=== PATIENT | female | born 1945 | race Caucasian/White ===

== ENCOUNTER 2019-10-02 10:50 | Emergency (ER) | payer MEDICARE, BC, SELFPAY ==
[2019-10-02 10:51] VITALS: BP 175/52; PULSE 68; RESP 16; TEMP 36.8; O2SAT 99; BMI 31.4
--- NOTE | 2019-10-02 11:23 | CT_ITS ---
STUDY: CT BRAIN WITHOUT CONTRAST REASON FOR EXAM: Female, 73 years old. Status post fall on the back of the head, history of Parkinson''s with brain stimulator. RADIATION DOSAGE (If Supplied By Facility): CTDIvol = ( 44.99 ) mGy, DLP = ( 762.36 ) mGycm TECHNIQUE: Transaxial CT imaging of the brain was performed without administration of intravenous contrast material. Individualized dose optimization techniques were used for this CT. COMPARISON: No relevant priors. FINDINGS: Normal soft tissue structures. Normal calvarium. There is mild cerebral atrophy with widening of the extra-axial spaces and ventricular dilatation. Neurotransmitters wires are seen. Normal white matter tracts of the cerebral hemispheres. Normal basal ganglia and thalami. Normal brainstem. There is mild cerebellar atrophy. There is no intracranial hemorrhage. There are no findings of an acute ischemic infarction. There is opacification of the right maxillary sinus. CT/Brain/Head without Contrast IMPRESSION: No acute intracranial process as described above. Electronically Signed: Hugo Napier MD at 11:49 EDT Tel , Service support ,
--- NOTE | 2019-10-02 11:25 | ED.DCSUM_ITS ---
- ER Visit Summary Date of Service: 10/02/19 Chief Complaint: Fall History of Present Illness: The patient is a 73 F who presents after a fall that occurred today. Patient states she has Parkinson's disease and lost her balance. Patient states she fell backwards and hit the back of her head. states that he heard her hit her head and it was fairly loud. Patient denies any loss of consciousness. Patient denies any new paresthesias or weakness. Patient denies any visual changes. Patient denies any nausea or vomiting. Patient complains of a dull occipital headache. Physical Examination: Vital signs are stable. Patient is afebrile. Patient is in no acute distress. Cranial nerves II through XII are intact. Strength is 5/5 bilateral in upper and lower extremities. There are no sensory deficits noted. There is tenderness and a small hematoma over the left occipital area. There is no laceration. There is no bleeding noted. There is no bony crepitance or step-off. Pupils are equal, round, and reactive to light bilaterally. Extraocular muscles are intact. Oral mucosa is pink and moist. Neck is supple. Trachea is midline. There is no JVD. Heart was regular rate and rhythm. Lungs are clear and equal bilaterally. Abdomen is soft and nontender. Extremities are intact. There is no calf tenderness or edema. Test Results: CT scan of the brain was obtained. There is no acute intracranial abnormality. This was interpreted by the radiologist and reviewed by myself. Emergency Department Course and Treatment: Patient was given head injury instructions. Patient was instructed to follow-up with her primary care physician in 5 to 7 days. Patient was instructed return if worse in any way. Patient and her understood and were agreeable with the plan. All questions were answered. Disposition: Discharge home Impression: Closed head injury This note was generated with [employer] dictation software. It may contain incorrect words, spelling, and punctuation that were not noted in review of the chart prior to signing ED Disposition - Plan for ED Patient: Disposition: Home or Assisted Living Diagnosis: Closed head injury Instructions: ED Head Injury Adult Referrals: Bruce Vidal DO [Primary Care Provider] - 5-7 Days
== END 2019-10-02 12:10 | disposition home or self-care (01) ==
PROVIDERS: Emergency Provider Emergency Medicine; PCP Family Medicine
DX: S09.90XA Unspecified injury of head, initial encounter (principal); G20 Parkinson's disease; W19.XXXA Unspecified fall, initial encounter
CPT/HCPCS: 70450; 99282

== ENCOUNTER 2021-02-06 18:31 | Emergency (ER) | payer MEDICARE, BC, SELFPAY ==
[2021-02-06 18:32] VITALS: BP 208/104; PULSE 84; RESP 18; TEMP 36.4; O2SAT 100; BMI 26.6
--- NOTE | 2021-02-06 19:46 | EX.ED.DYSGE1 ---
HPI History of Present Illness Chief Complaint: Foreign Body Detail of Chief Complaint: Choking episode Informant: patient and spouse/S.O. Narrative Narrative: To the emergency department after having a choking episode this afternoon. Patient apparently was eating a Fransico casserole when she started to choke. Her performed the Heimlich maneuver about 3 times and then was able to dislodge the food. EMS was called and they assessed her in a brought her in to make sure she did not aspirate. states that patient has had history of difficulty swallowing at times and had a swallow eval about a year ago however no limitations were placed on the consistency of her food. Patient has no complaints at this time and denies difficulty swallowing or trouble breathing. Patient has history of Parkinson's as well as diabetes and hypothyroidism. Prior similar symptoms: No PFSH PFS Medical History (Updated 02/06/21 @ 20:[address] Kenzie Zhang, ) DM hyperosmolarity type II Hypothyroid Parkinson disease Parkinson's disease with use of electrical brain stimulation Home Medications carbidopa-levodopa 1 ea PO TID 10/02/19 [History Last Taken Unknown] carbidopa-levodopa 2 tab PO BIDAC 10/02/19 [History Last Taken Unknown] cholecalciferol (vitamin D3) 1,000 unit PO DAILY 10/02/19 [History Last Taken Unknown] ergocalciferol (vitamin D2) 1,250 mcg PO 10/02/19 [History Last Taken Unknown] furosemide 40 mg PO DAILY PRN 10/02/19 [History Last Taken Unknown] levothyroxine 112 mcg PO DAILY 10/02/19 [History Last Taken Unknown] losartan 50 mg PO DAILY 10/02/19 [History Last Taken Unknown] melatonin 5 mg PO QHS 10/02/19 [History Last Taken Unknown] metoprolol tartrate 50 mg PO BID 10/02/19 [History Last Taken Unknown] mirtazapine 30 mg PO QHS 10/02/19 [History Last Taken Unknown] potassium chloride 10 meq PO DAILY 10/02/19 [History Last Taken Unknown] potassium chloride 10 meq PO DAILY PRN 10/02/19 [History Last Taken Unknown] ropinirole 12 mg PO DAILY 10/02/19 [History Last Taken Unknown] sitagliptin-metformin 1 ea PO DAILY 10/02/19 [History Last Taken Unknown] Allergy/AdvReac Type Severity Reaction Status Date / Time No Known Allergies Allergy Verified 02/06/21 18:33 Social History Smoking Status: Never smoker ROS ROS ED Constitutional Constitutional ED: Reports systems reviewed and no addt'l complaints, except as documented; Denies body ache(s), change in weight or chills Eyes Eyes: Denies acute decrease in peripheral vision, change in vision, double vision or loss of vision ENT ENT ED: Reports none; Denies ear pain, lip swelling, loss taste/smell, neck pain, otalgia or sore throat Cardiovascular Cardiovascular: Reports none; Denies abdominal pain, chest pain with activity, leg edema, lightheadedness, palpitations, rapid heart rate or syncope Respiratory/Chest Respiratory/Chest: Reports none; Denies change in mental status, dry cough, dyspnea, hemoptysis, shortness of breath at rest or shortness of breath with exertion Gastrointestinal Gastrointestinal: Reports none and other Details: Choking episode ; Denies abdominal pain, change in stool character, diarrhea, hematemesis, hematochezia, melena, rectal bleeding or vomiting Genitourinary Genitourinary ED: Reports none; Denies abdominal discomfort, anuria, dysuria, genital pain or polyuria Musculoskeletal Musculoskeletal: Reports none; Denies arthralgias, back pain, difficulty walking, extremity pain, muscle weakness or myalgias Integumentary Reports none; Denies abscess or rash Neurologic Neurologic: Reports none; Denies abnormal gait, confusion, focal weakness, frequent falls, headache(s), loss of vision, numbness, paresthesias, radicular pain, vertigo or weakness Psychiatric Psychiatric: Reports systems reviewed and no addt'l complaints, except as documented and none; Denies behavioral changes, confusion, difficulty concentrating, hallucinations, suicidal ideation, tactile hallucinations or visual hallucinations Endocrine Endocrinology: Denies none, cold intolerance, excessive sweating, fatigue or heat intolerance Hematologic/Lymphatic Hematologic/Lymphatic: Reports none; Denies anemia, easy bleeding or easy bruising Allergic/Immunologic Allergic/Immunologic ED: Denies as per HPI, none, lip swelling, mouth swelling, throat swelling, tongue swelling or hives EXAM Physical Exam Const Vital Signs: 02/06/21 18:32 Temperature 97.5 F L Temperature Source Temporal Pulse Rate 84 Respiratory Rate 18 Blood Pressure 208/104 H Blood Pressure Mean 138 Pulse Ox 100 Oxygen Delivery Method Room Air Positive well nourished and well developed General Appearance ED: well developed and NAD HEENT Reports TM's clear and moist mucous membranes normocephalic and atraumatic; Negative for trauma or tenderness Tympanic Membrane ED: Yes TM's clear Eyes PERRL and EOMs intact bilaterally General Eye ED: Negative for pale conjunctiva or scleral icterus Neck no lymphadenopathy, supple and no JVD General: Negative for tenderness Chest Wall inspection of chest normal and palpation of chest normal Chest: Negative for tenderness Resp normal respiratory effort and clear to auscultation bilaterally Effort and Inspection: Negative for respiratory distress or pain with movement Auscultation: Negative for rhonchi, wheezes or diminished lung sounds Cardio regular rate, regular rhythm, S1 normal heart sound, S2 normal heart sound and no murmurs Peripheral Pulses: pulses 2+ throughout GI normal to inspection, nondistended, normoactive bowel sounds, soft to palpation, non-tender, non-distended and no masses Back/Spine no CVA tenderness and no thoracic nor lumbar tenderness Extremity normal to inspection General Extremety ED: Negative for edema General Extremity: Negative for edema Neuro oriented x3, CN's II-XII intact bilaterally, no sensory deficits noted and gait normal Sensorium / Orientation: awake, alert, oriented to person, oriented to place and oriented to time Motor Exam: strength 5/5 throughout and strength abnormal Psych mental status grossly normal Skin no rashes or lesions noted and no wounds MDM MDM MDM Narrative Medical decision making narrative: Patient was given water to drink and she was able to swallow without difficulty. I do not suspect esophageal impaction. This point patient has no complaints and has no respiratory distress. I feel she can be safely discharged home. I advised them to return if cough, fever, increasing shortness of breath, or condition should worsen anyway. Radiography Chest X-Ray - ED: 1 View Diagnostic Testing: Clinical Impression(s) from Imaging Studies Chest X-Ray 02/06/21 19:55 IMPRESSION: No acute radiographic abnormalities. Electronically Signed: Huy Clemens MD at 20:22 EST Tel , Service support , 1 view chest x-ray obtained interpreted by myself as no acute disease process. Radiology was in agreement. Discharge Plan Triage Chief Complaint: Foreign Body ED Provider: Kenzie Zhang Dx/Rx/DC Orders Clinical Impression: Choking episode Instructions: ED Choking Spell (Adult) Prescriptions: No Action losartan 50 MG tablet 50 mg PO DAILY RF: 0 furosemide 40 MG tablet 40 mg PO DAILY PRN (Reason: Swelling) RF: 0 potassium chloride 10 MEQ capsule, extended release 10 meq PO DAILY RF: 0 mirtazapine 30 MG tablet,disintegrating 30 mg PO QHS RF: 0 potassium chloride 10 MEQ tablet extended release 10 meq PO DAILY PRN (Reason: Swelling) RF: 0 metoprolol tartrate 50 MG tablet 50 mg PO BID RF: 0 ergocalciferol (vitamin D2) 1,250 MCG capsule 1,250 mcg PO RF: 0 carbidopa-levodopa 1 TABLET tablet 2 tab PO BIDAC RF: 0 levothyroxine 112 MCG tablet 112 mcg PO DAILY RF: 0 cholecalciferol (vitamin D3) 1,000 UNIT tablet 1,000 unit PO DAILY RF: 0 melatonin 5 MG tablet 5 mg PO QHS RF: 0 ropinirole 12 MG tablet extended release 24 hr 12 mg PO DAILY RF: 0 sitagliptin-metformin 1 EACH tablet, ER multiphase 24 hr 1 ea PO DAILY RF: 0 carbidopa-levodopa 1 EACH capsule, extended release 1 ea PO TID RF: 0 Primary Care Provider: Bruce Vidal Referrals: Bruce Vidal DO [Primary Care Provider] - 3-5 Days Disposition Disposition: Home, Self Care
--- NOTE | 2021-02-06 19:55 | RAD_ITS ---
INDICATION: choking spell EXAMINATION/TECHNIQUE: X-RAY - XR Chest 1 View COMPARISON: None. FINDINGS: The lungs are clear. Tortuous and calcified thoracic aorta. The heart is not enlarged. Bilateral cardiac device is. No pleural effusion or pneumothorax. Degenerative changes of the thoracic spine and shoulders. RAD/Chest 1 View (Portable) IMPRESSION: No acute radiographic abnormalities. Electronically Signed: Huy Clemens MD at 20:22 EST Tel , Service support ,
== END 2021-02-06 20:48 | disposition home or self-care (01) ==
PROVIDERS: Emergency Provider Emergency Medicine; PCP Family Medicine
DX: T17.928A Food in respiratory tract, part unspecified causing other injury, initial encounter (principal); E03.9 Hypothyroidism, unspecified; G20 Parkinson's disease; E11.00 Type 2 diabetes mellitus with hyperosmolarity without nonketotic hyperglycemic-hyperosmolar coma (NKHHC); Z79.84 Long term (current) use of oral hypoglycemic drugs; Z79.899 Other long term (current) drug therapy
CPT/HCPCS: 71045; 99284

== ENCOUNTER → 2021-03-28 12:45 | Outpatient (CLI) | payer MEDICARE, BC, SELFPAY ==
--- NOTE | 2021-03-28 15:58 | ST.MBS ---
Modified Barium Swallow - Patient Information Study Date: 03/28/21 Study Time: 13:00 Direct Billable Minutes: 120 Total Minutes procedure & reportin Diagnosis: Dysphagia, unspecified (R13.10), Parkinson?s Disease (G20) Referring Physician: Lupillo Wesley CNP Reason for Referral: Objectively assess swallow function, choking and aspiration risk, and determine recommendations for least restrictive diet texture and compensatory strategies to improve safety of swallow. Medical History: The patient is a 75 year old female with PMH including Parkinson?s disease with use of electrical brain stimulation, hypothyroid, and DM hyperosmolarity Type II. On 02/06/2022, the patient presented to [facility] ED after having a choking episode. Patient apparently was eating a Fransico casserole when she started to choke. Her performed the Heimlich maneuver about 3 times and then was able to dislodge the food. EMS was called, they assessed her and brought her to the ED for concerns for aspiration. The patient?s states that patient has had a history of difficulty swallowing. Per pt?s , she had a swallow eval about two years ago recommending no modified diet or speech therapy. She currently has to take meds with applesauce and avoids difficult to chew foods. Current Diet Ordered: Soft solids / Thin Mental Status: WNL Respiratory Status: Oxygenating on Room Air - Penetration-Aspiration Scale Penetration-Aspiration Scale: OBJECTIVE ASSESSMENT OF SWALLOW FUNCTION (QUANTITATIVE ? PER TRIAL): PENETRATION / ASPIRATION SCALE (LOMAS): 1 = does not enter airway 2 = enters airway/above vocal folds/ejected 3 = enters airway/above vocal folds/not ejected 4 = enters airway/contacts vocal folds/ejected 5 = enters airway/contacts vocal folds/not ejected 6 = enters airway/below vocal folds/ejected 7 = enters airway/below vocal folds/not ejected despite effort 8 = enters airway/below vocal folds/no effort VIDEOFLOROSCOPIC SCALE SCORE (LOMAS): Grade I = aspiration of material that has penetrated into the laryngeal vestibule, intact cough reflex Grade II = aspiration < 10 % of the bolus, intact cough reflex Grade III = aspiration of < 10 % of the bolus, reduced cough reflex or aspiration of > 10 % of the bolus, intact cough reflex Grade IV = aspiration of > 10 % of the bolus, reduced cough reflex - Penetration-Aspiration Scale Score Thin Liquid via teaspoon Result: 5= enters airways/contacts vocal folds/not ejected Thin Liquid via teaspoon Trial 2 Result: 5= enters airways/contacts vocal folds/not ejected Thin Liquid via small single sip from cup Result: 3= enters airways/above vocal folds/not ejected Thin Liquid via small single sip from cup Trial 2 Result: 8= enters airway/below vocal folds/no effort Pennock Thick Liquid via small single sip from cup Result: 2= enter airway/above vocal folds/ejected Honey Thick Liquid via small single sip from cup Result: 2= enter airway/above vocal folds/ejected Pudding Result: 7= enters airways/below vocal folds/not ejected despite effort - Post prandial aspiration of previous trials of thickened liquid residue. Weak cough/throat clear ineffective to expel aspirated contents. Cookie Result: 1= does not enter airway Thin Liquid via single sip from straw Result: 1= does not enter airway Thin Liquid via single sip from straw Trial 2 Result: 7= enters airways/below vocal folds/not ejected despite effort Thin Liquid via teaspoon Effortful swallow Result: 8= enters airway/below vocal folds/no effort Thin Liquid via teaspoon Effortful swallow Trial 2 Result: 7= enters airways/below vocal folds/not ejected despite effort Pennock Thick Liquid via teaspoon Effortful swallow Result: 7= enters airways/below vocal folds/not ejected despite effort Thin Liquid via teaspoon Chin tuck Result: 5= enters airways/contacts vocal folds/not ejected Thin Liquid via teaspoon Chin tuck Trial 2 Result: 5= enters airways/contacts vocal folds/not ejected Thin Liquid via teaspoon Cough and Reswallow Result: 5= enters airways/contacts vocal folds/not ejected - Cough and reswallow was somewhat effective but did not clear entirety of penetrated contrast from the laryngeal vestibule. - Oral Phase Labial Seal: Escape progressing to mid-chin Tongue Control During Bolus Hold: Posterior escape of greater than half of bolus Bolus Preparation/Mastication: Slow prolonged chewing/mashing with complete recollection Bolus Transport/Lingual Motion: Repetitive/disorganized tongue motion Oral Residue: Residue collection on oral structures - Pharyngeal Phase Initiation of Pharyngeal Swallow: Bolus head in pyriforms Soft Palate Elevation: Trace column of contrast/air between soft palate and pharyngeal wall Laryngeal Elevation: Partial superior movement thyroid cart/partial apprx aryt-epig petiole Anterior Hyoid Excursion: No anterior movement Epiglottic Movement: Partial inversion Laryngeal Vestibule Closure at Height of Swallow: Incomplete; narrow column of air/contrast in laryngeal vestibule Pharyngeal Stripping Wave: Present - complete Pharyngoesophageal Segment Opening: Minimal distension and minimal duration; marked obstruction of flow Tongue Base Retraction: Trace column of contrast between tongue base & post. pharyngeal wall Pharyngeal Residue: Collection of residue within or on pharyngeal structures - Esophageal Phase Esophageal Clearance: Esophageal retention - Minimal retention of contrast in upper and mid esophagus - Treatment Strategies Effects of treatment strategies attemped:: Chin tuck = somewhat effective Cough and reswallow = somewhat effective Decreased bolus size = effective - Diagnosis/Impression Diagnosis: moderate oropharyngeal phase dysphagia (R13.12) Impression: The oral phase is marked by prolonged mastication, decreased bolus control, and disorganized A-P bolus transport. She required prolonged mastication of 1/4 of a shortbread cookie with posterior loss of portion of bolus. She demonstrated frequent posterior loss of thin and nectar liquid boluses to the pyriform sinuses prior to swallow onset. She had repetitive, slowed tongue motion for A-P bolus transport. The pharyngeal phase is marked by decreased airway protection and moderate pharyngeal residues. The patient has decreased airway closure due to little to no anterior hyoid excursion and decreased laryngeal elevation during the swallow. She also has decreased UES opening likely due to poor hyolaryngeal elevation and excursion. She demonstrated silent aspiration of thin liquids via cup and thin liquids via tsp with effortful swallow. She had post prandial aspiration of honey thickened liquids via cup, nectar thick liquids tsp with effortful swallow, and thin liquids via straw. These trials aspirated after the swallow from residue in the pyriform sinuses. She did demonstrate cough reflex; however, cough was ineffective at expelling aspirated contrast. With use of cough & reswallow with tsp sips of thin, the patient was able to decrease some of the contrasted material in the laryngeal vestibule after the initial swallow with improved pharyngeal clearance on the second swallow. She was unable to fully eject contrast from the laryngeal vestibule with use of volitional or reflexive cough. - Recommendations Diet: Mechanical Soft Textures - Minced and Moist Textures (IDDSI Level 5), Thin Liquids Compensatory Strategies: Small Bites, Small Sips, Liquid by Teaspoon Only - Consider cough and reswallow with each sip, Sitting upright, Remain sitting upright for 30 minutes after PO intake, Assist with verbal cues to use recommended strategies Supervision: 1:1 Close Supervision Recommend Repeat Modified Barium Swallow: Yes - 4-8 weeks after implementation of oropharyngeal exercise program Need for Skilled Speech Therapy Services: Yes Comment: Will recommend the patient for intensive dysphagia therapy to address deficits in oropharyngeal swallow function. Would consider the patient for oropharyngeal strengthening to improve lingual coordination/strength, laryngeal elevation, hyoid excursion, and duration of UES opening. The patient would benefit from thorough education regarding diet recommendations and recommended compensatory strategies. Would also consider the patient for speech therapy referral to address dysarthria related to Parkinson's disease. Education Completed: 4. Family/caregivers understand evaluation & agree w/ goals & tx plan., 7. Pt requires further education on strategies & risks. - Status Active ST Patient: Active - Contact Information [facility] Speech Therapy:: Sofia Pichardo M.A. [facility] Speech-Language Pathologist [facility] [address] [place] [address] [email or web address] [phone] 03/28/21 16:21
== END ==
LOC: RAD 12:50
PROVIDERS: PCP Family Medicine
DX: R13.10 Dysphagia, unspecified (principal)
CPT/HCPCS: 74230; 92611

== ENCOUNTER → 2023-12-26 | Outpatient (CLI) | payer MEDICARE, BC, SELFPAY ==
--- NOTE | 2023-12-26 15:45 | RAD_ITS ---
EXAM: XR CHEST, 2 VIEWS CLINICAL INDICATION: COUGH, PARKINSONS, CONCERN FOR ASPIRATION TECHNIQUE: Frontal and lateral views of the chest. COMPARISON: 02/06/2021. FINDINGS: LUNGS AND PLEURAL SPACES: Unremarkable. No consolidation or edema. No pneumothorax. No effusion. HEART: Unremarkable. Cardiac silhouette not enlarged. MEDIASTINUM: Central airways and mediastinal contour are unremarkable. BONES/JOINTS: Unremarkable. No acute fracture. SOFT TISSUES: Unremarkable. TUBES, LINES AND DEVICES: Bilateral neural stimulators overlying the chest unchanged. RAD/Chest PA and Lateral IMPRESSION: No acute cardiopulmonary abnormality. Electronically Signed: Carlos Holley MD at 8:44 EST ,
== END | disposition home or self-care (01) ==
LOC: RAD 15:21
PROVIDERS: PCP Family Medicine; Referring Provider Family Medicine; Visit Provider Family Medicine
DX: R05.9 Cough, unspecified (principal); G20.A1 Parkinson's disease without dyskinesia, without mention of fluctuations
CPT/HCPCS: 71046

== ENCOUNTER 2024-04-12 12:12 | Inpatient (IN) | payer MEDICARE, BC, SELFPAY ==
[2024-04-12] VITALS (18 sets, daily range): BP systolic 118–174; BP diastolic 51–117; PULSE 69–117; RESP 12–35; TEMP 36.4–37.2; O2SAT 85–100; BMI 21.5; BMI 20.9
--- NOTE | 2024-04-12 12:34 | RAD_ITS ---
PROCEDURE: CHEST 1 VIEW (PORTABLE) REASON FOR EXAM: Weakness. Difficulty breathing. TECHNIQUE: Portable chest radiograph was obtained. COMPARISON: Comparison is made with prior study dated February 06, 2021. FINDINGS: There now is evidence of consolidation in the left lower lobe with small left pleural effusion. Mild cardiomegaly. Bilateral pacemaker devices with leads heading cephalad. Degenerative changes of the thoracic spine. RAD/Chest 1 View (Portable) IMPRESSION: Left lower lobe infiltrate with small left pleural effusion. Reading Location: [id number]
--- NOTE | 2024-04-12 12:36 | EKG12_ITS ---
Test Reason : SOB Blood Pressure : */* mmHG Vent. Rate : 76 BPM Atrial Rate : 76 BPM P-R Int : 142 ms QRS Dur : 132 ms QT Int : 420 ms P-R-T Axes : 55 -38 100 degrees QTcB Int : 472 ms Normal sinus rhythm Left axis deviation Left bundle branch block Abnormal ECG No previous ECGs available Confirmed by Carlos Hanks ([id number]), editorial project manager NANETTE AMEZQUITA ([id number]) on 04/13/2024 5:58:23 AM Referred By: NICKOLAS Confirmed By: Carlos Hanks
--- NOTE | 2024-04-12 12:40 | ED.VIS.DYS ---
HPI History of Present Illness Chief Complaint: Weakness Informant: patient and EMS Limited: other (nonverbal) Narrative Narrative: 78-year-old female presented by EMS because of shortness of breath, she states she has had a cough and some trouble breathing for about a week. She was hypoxic 85% on room air for EMS, very weak at home, to the point where she was unable to get up. has also been ill with respiratory symptoms. He came to the ED but was unable to provide any history due to personal illness. [facility] Medical History Parkinson's disease with use of electrical brain stimulation Hypothyroid DM hyperosmolarity type II Parkinson disease Home Medications ?Medication ?Instructions ?Recorded ?Last Taken ?Type carbidopa 25 mg-levodopa 100 mg 2 tab PO BIDAC 10/02/19 Unknown History tablet carbidopa ER 61.25 mg-levodopa 245 1 ea PO TID 10/02/19 Unknown History mg capsule,extended release cholecalciferol (vitamin D3) 25 1,000 unit PO DAILY 10/02/19 Unknown History mcg (1,000 unit) tablet ergocalciferol (vitamin D2) 1,250 1,250 mcg PO 10/02/19 Unknown History mcg (50,000 unit) capsule furosemide 40 mg tablet 40 mg PO DAILY PRN Swelling 10/02/19 Unknown History levothyroxine 112 mcg tablet 112 mcg PO DAILY 10/02/19 Unknown History losartan 50 mg tablet 50 mg PO DAILY 10/02/19 Unknown History melatonin 5 mg tablet 5 mg PO QHS 10/02/19 Unknown History metoprolol tartrate 50 mg tablet 50 mg PO BID 10/02/19 Unknown History mirtazapine 30 mg disintegrating 30 mg PO QHS 10/02/19 Unknown History tablet potassium chloride 10 mEq 10 meq PO DAILY 10/02/19 Unknown History capsule,extended release potassium chloride 10 mEq 10 meq PO DAILY PRN Swelling 10/02/19 Unknown History tablet,extended release ropinirole 12 mg tablet,extended 12 mg PO DAILY 10/02/19 Unknown History release 24 hr sitagliptin phos 100 mg-metformin 1 ea PO DAILY 10/02/19 Unknown History ER 1,000 mg tablet,extend rel 24h mp Allergy/AdvReac Type Severity Reaction Status Date / Time No Known Allergies Allergy Verified 02/06/21 18:33 Social History Smoking Status: Never smoker ROS ROS ED Review of Systems ROS Unobtainable: other Details: Nonverbal and extremely hard of hearing without hearing aids available Constitutional Constitutional ED: Reports fatigue and weakness; Denies fever(s) Cardiovascular Cardiovascular: Denies chest pain Respiratory/Chest Respiratory/Chest: Reports cough and dyspnea Gastrointestinal Gastrointestinal: Denies abdominal pain, diarrhea, nausea or vomiting EXAM Physical Exam Const Vital Signs: 04/12/24 12:13 04/12/24 12:17 04/12/24 14:15 Temperature 98.2 F Temperature Source Oral Pulse Rate 80 82 Respiratory Rate 22 H 24 H Respiratory Effort Short of Breath Respiratory Pattern Tachypnea Blood Pressure 143/60 H Blood Pressure Mean 87 Pulse Ox 94 Oxygen Delivery Method Nasal Cannula Nasal Cannula Oxygen Flow Rate (L/min) 2 04/12/24 14:33 04/12/24 14:33 04/12/24 14:35 Temperature 97.9 F Temperature Source Oral Pulse Rate 99 Respiratory Rate 26 H Respiratory Effort Short of Breath Respiratory Pattern Tachypnea Blood Pressure 148/117 H Blood Pressure Mean 127 Pulse Ox 99 Oxygen Delivery Method Nasal Cannula Nasal Cannula Oxygen Flow Rate (L/min) 4 4 Positive well nourished and well developed Constitutional Narrative: Appears weak no distress General Appearance ED: well developed and NAD HEENT Reports moist mucous membranes normocephalic and atraumatic Eyes PERRL and EOMs intact bilaterally Neck full ROM and supple Resp normal respiratory effort Resp Narrative: Rales left base Cardio regular rate and regular rhythm GI non-tender and non-distended GI Narrative: Epigastric G-tube site benign. Auscultation: normoactive bowel sounds Palpation: soft Back/Spine no CVA tenderness General Back: other FROM Extremity normal to inspection General Extremety ED: Negative for edema, pulses abnormal or tenderness General Extremity: Negative for edema or pulses abnormal Neuro CN's II-XII intact bilaterally and no sensory deficits noted Neuro Narrative: Able to follow commands. Nonverbal. Writes some answers very slowly on paper. Sensorium / Orientation: awake and alert Motor Exam: strength 5/5 throughout Skin no rashes or lesions noted and no wounds MDM MDM MDM Narrative Medical decision making narrative: 1 view chest x-ray shows what appears to be left lower lobe pneumonia with a small left pleural effusion. Her BNP is a little elevated, considering cardiopulmonary edema without infection, but although her white blood count is only 5.4, there is a left shift without bands and I think this could be infection until proven otherwise some covering her with antibiotics and given her hypoxemia admitting her to the hospital. Her influenza returned positive for influenza A, so also adding Tamiflu, that and the azithromycin will go in her G-tube, with IV Zosyn. She does not have respiratory failure or in need of mechanical ventilation and her lactate is normal, so I do not think she needs to be admitted to the ICU right now. History & Record Review Discussion w/independent historian: Patient and Family Lab Data Attestation: I reviewed the patient's lab results. Labs: Laboratory Results - last 24 hr 04/12/24 04/12/24 11:50 13:50 WBC 5.4 RBC 3.67 L Hgb 10.8 L Hct 32.8 L MCV 89.4 MCH 29.4 MCHC 32.9 RDW Std Deviation 43.0 RDW Coeff of Olive 13.0 Plt Count 160 MPV 11.5 Immature Gran % (Auto) 0.600 Neut % (Auto) 89.5 H Lymph % (Auto) 2.9 L [place] % (Auto) 6.4 Eos % (Auto) 0.2 Baso % (Auto) 0.4 Absolute Neuts (auto) 4.9 Absolute Lymphs (auto) 0.16 L Nucleated RBC % 0 Sodium 135 Potassium 4.2 Chloride Direct 101 Carbon Dioxide 23.9 Anion Gap 10 BUN 18 Creatinine 0.61 L Estim Creat Clear Calc 56.36 Est GFR (MDRD) Non-Af 92 BUN/Creatinine Ratio 30.0 H Glucose 102 H Lactic Acid 1.1 Calcium 8.7 Troponin T High Sens 14 NT pro BNP II 2262 H Radiography Diagnostic Testing: Clinical Impression(s) from Imaging Studies Chest X-Ray 04/12/24 12:34 IMPRESSION: Left lower lobe infiltrate with small left pleural effusion. Reading Location: [facility] Rhythm Strip Rhythm Strip: Sinus Rhythm Rate: 75 Ectopy: None EKG Initial EKG: Attestation: I personally reviewed and interpreted this EKG as follows: Interpretation: Sinus Rhythm, No Acute Injury Pattern and LBBB Prior EKG tracings: not available for review Prior: No Prior Management Discussion w/another healthcare provider: Hospitalist Discharge Plan Dx/Rx/DC Orders Clinical Impression: Hypoxemia, Pneumonia involving left lung, Parapneumonic effusion, Generalized weakness Disposition Disposition: Acute Care Hospital [facility]
[2024-04-12 13:22] LABS: Absolute Lymphocyte Count 0.16 X10^3/uL (0.83-4.51); Absolute Neutrophil Count 4.9 X10^3/uL (2.0-7.7); Basophil# 0.02 X10^3/uL; Basophil% 0.4 % (0-1); Eosinophil# 0.01 X10^3/uL; Eosinophils% 0.2 % (0-5); Hematocrit 32.8 % (37-47); Hemoglobin 10.8 g/dL (12.0-15.0); Lymphocyte # 0.16 X10^3/ul (0.83-4.51); Lymphocyte % 2.9 % (19-41); Mean Corp Hgb Conc 32.9 g/dL (32-36); Mean Corpuscular Hgb 29.4 pg (27.0-32.0); Mean Corpuscular Volume 89.4 fL (81-99); Mean Platelet Vol. 11.5 fl (6.2-12.0); Monocyte# 0.35 X10^3/uL; Monocyte% 6.4 % (0-10); NRBC Flagged by Analyzer 0 % (0-5); Neutrophil # 4.87 X10^3/uL (2.7-7.7); Neutrophil % 89.5 % (47-70); POSITIVE DIFFERENTIAL YES; Platelet Count 160 K/mm3 (150-450); Red Blood Count 3.67 M/mm3 (4.2-5.4); White Blood Count 5.4 K/mm3 (4.4-11.0)
[2024-04-12 13:34] LABS: Carbon Dioxide 23.9 mmol/L (22.0-29.0); Chloride 101 mmol/L (96-108); Potassium 4.2 mmol/L (3.3-5.1); Sodium Level 135 mmol/L (133-145)
[2024-04-12 13:35] LABS: Anion Gap 10 (5-15); BUN 18 mg/dL (4-19); Calcium 8.7 mg/dL (7.6-11.0); Creatinine, Serum 0.61 mg/dL (0.70-1.20); EST Glomerular Filtration Rate 92 (>60); Estimated Creatinine Clearance 56.36 ml/min (50-250); Glucose 102 mg/dL (70-99)
[2024-04-12 13:51] LABS: Pro- Brain NATRIURETIC PEPTIDE 2262 pg/mL (<=1800); Troponin T High Sensitivity 14 ng/L (<=14)
[2024-04-12] MEDS: 0.9% Normal Saline (500mL Bag) 500 ML 999 ML IV (14:09)
[2024-04-12] MEDS: Albuterol 2.5 MG/3 ML VIAL.NEB. INHALATION ×3 (14:12)
[2024-04-12 14:33] LABS: Lactic Acid 1.1 mmol/L (0.0-2.0)
[2024-04-12] MEDS: Piperacil/Tazobactam 3.375 GM in 0.9% Normal Saline (50mL MB+) 50 ML IV (15:28)
--- NOTE | 2024-04-12 15:28 | CHAPLAIN ---
Type of Pastoral Visit _x__ Initial Visit ___ Follow-up Visit ___ On-call Visit ___ General Patient Visit ___ Spiritual Assessment ___ Family Conference ___ Bereavement ___ Rapid Response ___ Code Blue ___ Other (describe below) Pastoral Care Referral From ___ Patient ___ Family _x__ Nurse ___ Physician ___ Instructional Paraprofessional ___ Industrial Design Engineer ___ Other (describe below) Sacrament/Intervention _x__ Active listening ___ Anointing ___ Baptist ___ Bereavement ___ Communion ___ Jacqui exploration ___ ___ Life review _x__ Prayer ___ Reconciliation ___ Sacrament of Sick _x__ Supportive presence ___ Wedding ___ Other (describe below) Pastoral Comments patient had come to the ED for treatment and then her spouse collapsed and became a code blue; this wound treatment rn arrived in the ED for the code blue and was asked to sit with this patient/spouse of the code blue; pt is nonverbal but writes her comments on a pad; gave presence, prayer, and assurances of care for both; was present when son-in-law and later the daughter of these patients came to the ED; gave supportive presence, calm words, assurance of care, offer of beverages to the family members; was then present for the spouse who had coded and offered support there
--- NOTE | 2024-04-12 15:31 | HP.PCM.HOS_ITS ---
HPI - General General Date of Admission: 04/12/24 Date of Service: 04/12/24 Chief Complaint: URI symptoms HPI Narrative MARYELLEN MCMILLAN, is a 78 F who presented [facility] ED on 04/12/2024 with worsening URI symptoms. Patient lives at home with who also came into the ED with her. Patient has history of advanced Parkinson's disease. He has poor hearing and is essentially nonverbal at baseline due to her Parkinson's but she is able to communicate by writing. Noted to family that she has had upper respiratory symptoms for the last week or so. She developed worsening cough and difficulty of breathing over the past day or so which prompted her to come in for further evaluation. In the ED she is found to be positive for influenza A. Was mildly hypertensive and had increased work of breathing on 4 L nasal cannula. Patient appeared dry on exam and was given IV fluids for this. Chest x-ray showed a left lower lobe infiltrate with small left pleural effusion and mild cardiomegaly. No prior history of heart failure noted. Given these findings, hospitalist was contacted for admission. Saw the patient at bedside in the ED, daughter and son-in-law are present. Patient was mildly fatigued appearing but otherwise sitting back fairly comfortably in bed and breathing up today on 4 L nasal cannula. She denied any pain or discomfort. No other acute concerns at this time. Unfortunately, patient was noted to have worsening respiratory function over the next hour or so and I reevaluated her at bedside. She had developed audible crackles bilaterally and had moderate increased work of breathing noted. Concern for heart failure with volume overload from IV fluids, gave patient a dose of IV Lasix and started her on BiPAP. Patient had improvement with these things and she was able to be transported over to the ICU on BiPAP in stable condition. [facility], [facility] Medical History Parkinson's disease with use of electrical brain stimulation Hypothyroid DM hyperosmolarity type II Parkinson disease Home Medications ?Medication ?Instructions ?Recorded ?Last Taken ?Type carbidopa 25 mg-levodopa 100 mg 2 tab PO .COMPLEX 09/11 04/01 Unknown History tablet cholecalciferol (vitamin D3) 25 1,000 unit PO DAILY Unknown History mcg (1,000 unit) tablet ergocalciferol (vitamin D2) 1,250 1,250 mcg PO 0 Unknown History mcg (50,000 unit) capsule furosemide 40 mg tablet 40 mg PO DAILY PRN Swelling 10/02/19 Unknown History levothyroxine 112 mcg tablet 112 mcg PO DAILY 10/02/19 Unknown History losartan 50 mg tablet 50 mg PO DAILY 10/02/19 Unkn own History melatonin 5 mg tablet 5 mg PO QHS 10/02/19 Unknown History metoprolol tartrate 50 mg tablet 50 mg PO BID 10/02/19 Unknown History mirtazapine 30 mg disintegrating 30 mg PO QHS 10/02/19 Unknown History tablet potassium chloride 10 mEq 10 meq PO DAILY 10/02/19 Unk nown History capsule,extended release potassium chloride 10 mEq 10 meq PO DAILY PRN Swelling 10/02/19 Unknown History tablet,extended release sitagliptin phos 100 mg-metformin 1 ea PO DAILY Unknown History ER 1,000 mg tablet,extend rel 24h mp entacapone 200 mg tablet 200 mg PO 4XD 04/12/24 Unkno wn History ropinirole 2 mg tablet 4 mg PO DAILY 04/12/24 Unkno wn History sitagliptin phosphate 100 mg 100 mg PO DAILY 04/12/24 Unknown History tablet (Januvia) Allergy/AdvReac Type Severity Reaction Status Date / Time No Known Allergies Allergy Verified 02/06/21 18:33 Social History Smoking Status: Never smoker ROS Constitutional Constitutional: Reports fatigue and weakness; Denies chills or fever(s) Eyes Eyes: Denies change in vision Cardiovascular Cardiovascular: Reports dyspnea on exertion; Denies chest pain Respiratory/Chest Respiratory/Chest: Reports cough, dyspnea, shortness of breath at rest and shortness of breath with exertion; Denies productive cough or wheezing Gastrointestinal Gastrointestinal: Denies abdominal pain Musculoskeletal Musculoskeletal: Denies arthralgias or myalgias Neurologic Neurologic: Denies dizziness or headache(s) Vital Signs Vital Signs Vital Signs: 04/12/24 12:13 04/12/24 12:17 04/12/24 14:15 Temperature 98.2 F Temperature Source Oral Pulse Rate 80 82 Respiratory Rate 22 H 24 H Respiratory Effort Short of Breath Respiratory Pattern Tachypnea Blood Pressure 143/60 H Blood Pressure Mean 87 Pulse Ox 94 Oxygen Delivery Method Nasal Cannula Nasal Cannula Oxygen Flow Rate (L/min) 2 04/12/24 14:33 04/12/24 14:33 04/12/24 14:35 Temperature 97.9 F Temperature Source Oral Pulse Rate 99 Respiratory Rate 26 H Respiratory Effort Short of Breath Respiratory Pattern Tachypnea Blood Pressure 148/117 H Blood Pressure Mean 127 Pulse Ox 99 Oxygen Delivery Method Nasal Cannula Nasal Cannula Oxygen Flow Rate (L/min) 4 4 Weight Weight: 62.5 kg Body Mass Index (BMI) 21.5 Physical Exam Const alert, no apparent distress and average body habitus Constitutional Narrative: Elderly female, advanced Parkinson's and nonverbal at baseline but able to answer questions by writing things down, making appropriate eye contact, mildly fatigued appearing but otherwise sitting up comfortably in bed. General Appearance: cooperative and comfortable HEENT normocephalic, head/scalp atraumatic, hearing grossly normal bilaterally, nasal mucous membranes and turbinates normal and moist oral mucous membranes Eyes PERRL, EOMs intact bilaterally and conjunctivae normal Neck full ROM Chest inspection of chest normal Resp normal respiratory effort and no use of accessory muscles Resp Narrative: Breathing comfortably on 4 L nasal cannula at rest. Moderately decreased breath sounds bilaterally with crackles noted in bilateral lung bases. No wheezing noted. Cardio regular rate, regular rhythm, no murmurs and peripheral pulses 2+ throughout GI normal to inspection, nondistended, normoactive bowel sounds, soft to palpation, non-tender and non-distended Back/Spine normal ROM Extremity normal to inspection, full ROM and no pedal edema Skin no rashes or lesions noted Neuro Neuro Narrative: Rigidity noted with movement. Psych mental status grossly normal Psych Narrative: Flat affect. Results Lab / Micro Data 04/12/24 11:50 04/12/24 11:50 Labs: Laboratory Results - last 24 hr 04/12/24 11:50: WBC 5.4, RBC 3.67 L, Hgb 10.8 L, Hct 32.8 L, MCV 89.4, MCH 29.4, MCHC 32.9, RDW Std Deviation 43.0, RDW Coeff of Olive 13.0, Plt Count 160, MPV 11.5, Immature Gran % (Auto) 0.600, Neut % (Auto) 89.5 H, Lymph % (Auto) 2.9 L, [place] % (Auto) 6.4, Eos % (Auto) 0.2, Baso % (Auto) 0.4, Absolute Neuts (auto) 4.9, Absolute Lymphs (auto) 0.16 L, Nucleated RBC % 0, Sodium 135, Potassium 4.2, Chloride Direct 101, Carbon Dioxide 23.9, Anion Gap 10, BUN 18, Creatinine 0.61 L, Estim Creat Clear Calc 56.36, Est GFR (MDRD) Non-Af 92, BUN/Creatinine Ratio 30.0 H, Glucose 102 H, Calcium 8.7, Troponin T High Sens 14, NT pro BNP II 2262 H 04/12/24 13:50: Lactic Acid 1.1 Micro: Microbiology 04/12/24 13:50 Mucosa - Nose SARS-CoV-2, Influenza & RSV (PCR) - Final Influenzae A Rhythm Strip Rhythm Strip: Sinus Rhythm Rate: 75 Ectopy: None Imaging Radiology Impression Chest X-Ray 04/12/24 12:34 IMPRESSION: Left lower lobe infiltrate with small left pleural effusion. Reading Location: [id number] Assessment & Plan Assessment/Plan (1) Acute hypoxic respiratory failure: (2) Generalized weakness: (3) Influenza A: PLAN: Plan Patient is a 78-year-old female who presented [facility] ED on 04/12/2024 with worsening URI symptoms. 1. Acute hypoxic respiratory failure secondary to influenza A infection with concern for CHF ? Admit under inpatient status to ICU. Ship/Rec/Doc Control consulted. Initial chest x- ray with mild volume overload, concern for left lower lobe pneumonia and mild cardiomegaly. BNP elevated at 2200. Influenza A positive. Seems most consistent with influenza A infection and new onset CHF. Will treat with Tamiflu and IV Lasix for now. Echo ordered. Wean supplemental oxygen as able. Appreciate deputy prosecuting attorney recommendations. 2. Advanced Parkinson's disease ? Stable. Continue home Parkinson's medications. Medical conditions: ? Hypertension: Will hold home Lopressor and losartan for now. ? Hypothyroidism: Continue home Synthroid. DVT prophylaxis: Lovenox CODE STATUS: DNR CCA, okay to intubate Expected disposition: TBD Total clinical time spent by myself addressing the patient's medical issues, reviewing all the data, and collaborating with patient's care team: 75 minutes. Charges/Coding Visit Charges Inpatient E&M: 78905 Init Hosp L3
[2024-04-12] MEDS: Furosemide 40 MG/4 ML Vial IV ×2 (16:24→18:56)
[2024-04-12] MEDS: Azithromycin 500 MG in 0.9% Normal Saline (250mL Bag) 250 ML 255 MG IV (16:44)
[2024-04-12] MEDS: Oseltamivir Phosphate 75 MG Capsule GT (16:45)
--- NOTE | 2024-04-12 16:52 | CASEMGMT ---
Care Management Face to Face with patient for initial transition planning/care coordination assessment in the ED. This global technical writer introduced self and role at [facility] to patient and patient's son in law, Heraclio, who was bedside. Patient alert and oriented, though nonverbal at baseline and wrote out answers. Some answers had been received from patient's daughter, Cathy, who was present at patient's 's bedside. Patient willing to participate in assessment and is able to answer all questions appropriately. Care providers, pharmacy, and demographics verified. Admitting Diagnosis: generalized weakness, influenza A Other diagnosis history: Parkinson's, Hypothyroidism PCP: Bruce Vidal Specialists: Sj, neurologist. Forest, coiled coil inspector. Preferred Pharmacy: [facility] ([email or web address]) Insurance: Medicare A B (primary). Mobile Complete (secondary). Prescription Benefit: yes Living Will/HPOA: (daughter Cathy is bringing in paperwork; it is believed that , Óscar, is listed first followed by children, Cathy and Freddie, though order is unknown; daughter Cathy did express interest in redoing paperwork should patient agree). LNOK: , Óscar. Daughter, Cathy. Son, Freddie. Living Arrangements: with in a split level home; 4 steps to enter main level (with kitchen and living room); 7 or 8 steps up to bedroom and bathroom; independent at baseline. Transportation: patient's drives DME: pacemaker, blood pressure cuff HHC: none SNF/Rehab: [facility] (though son-in-law was not sure which one) Community Resources: none Patient goals: Patient states desire to wait to decide what discharge plans are for patient depending on how patient's does. Disposition Plan: admission to acute; RN CM/SW to follow for discharge planning needs that may arise. Marisol Tyler, WEB EDITOR, [employer]
--- NOTE | 2024-04-12 18:28 | ECHOD_ITS ---
Reason For Study Reason For Study: CHF Procedure This was a 2D Doppler, Color Flow transthoracic echocardiogram. Exam performed portable in ICU/CCU. Left Ventricle Normal LV size. Mild concentric left ventricular hypertrophy. The left ventricular ejection fraction is 65 %. Stage 1 diastolic dysfunction. Right Ventricle Normal right ventricle. Atria The left and right atria are normal. Mitral Valve Mild mitral annular calcification. Trivial mitral valve insufficiency. Tricuspid Valve Trivial tricuspid valve insufficiency. Right ventricular systolic pressure estimated to be 55 mmHg. Aortic Valve Trisinus/trileaflet aortic valve. Pulmonic Valve The pulmonic valve is not well visualized. Great Vessels Normal sized aortic root. Pericardium/Pleural No pericardial effusion. MMode/2D Measurements & Calculations LVIDd: 4.2 cm IVSd: 1.2 cm Ao root diam: 2.9 cm LVIDs: 2.6 cm LVPWd: 1.2 cm RVDd: 3.0 cm FS: 39.2 % LAV(MOD-bp): 22.8 ml LVAd ap4: 21.5 cm2 SV(MOD-sp4): 32.1 ml LAV(MOD-bp) Indexed: 13.4 ml/m2 LVLd ap4: 7.2 cm SI(MOD-sp4): 18.9 ml/m2 LAV(MOD-sp2): 24.7 ml EDV(MOD-sp4): 52.6 ml LAV(MOD-sp4): 20.8 ml EDV(sp4-el): 54.6 ml LVAs ap4: 11.9 cm2 LVLs ap4: 5.9 cm ESV(MOD-sp4): 20.5 ml ESV(sp4-el): 20.3 ml EF(MOD-sp4): 61.1 % EF(sp4-el): 62.8 % SV(sp4-el): 34.3 ml LA A4 area: 11.5 cm2 LA dimension(2D): 2.8 cm RA A4 area: 9.4 cm2 TAPSE: 2.0 cm Time Measurements MV dec time: 0.18 sec Doppler Measurements & Calculations MV E max gavin: 80.5 cm/sec Lat Peak E' Gavin: 7.6 cm/sec Med Peak E' Gavin: 7.4 cm/sec MV A max gavin: 108.2 cm/sec E/E' lat: 10.6 E/E' med: 10.9 MV E/A: 0.74 Ao V2 max: 176.0 cm/sec LV V1 max: 131.9 cm/sec PA V2 max: 136.0 cm/sec Ao max P.4 mmHg LV V1 max P.0 mmHg TR max gavin: 317.0 cm/sec TR max P.2 mmHg ECHO/Echo Complete Interpretation Summary Mild concentric left ventricular hypertrophy. The left ventricular ejection fraction is 65 %. Stage 1 diastolic dysfunction. Mild mitral annular calcification. Right ventricular systolic pressure estimated to be 55 mmHg. Ordering Physician: Juno Benitez Referring Physician: YOMAIRA SHARP Performed By: Niki Cordero RDCS
[2024-04-12] MEDS: Mirtazapine 30 MG Tablet GT (22:17)
[2024-04-12] MEDS: Carbidopa/Levodopa 25/100 Tablet GT (22:17)
[2024-04-12] MEDS: Pramipexole Di-HCl 0.5 MG Tablet 1.5 MG PO (22:17)
[2024-04-13] VITALS (15 sets, daily range): BP systolic 107–162; BP diastolic 51–113; PULSE 63–86; RESP 12–29; TEMP 36.8–37.2; O2SAT 90–98; BMI 20.8
[2024-04-13] MEDS: Furosemide 40 MG/4 ML Vial IV ×2 (05:42→18:43)
[2024-04-13] MEDS: Carbidopa/Levodopa 25/100 Tablet GT ×5 (05:42→21:21)
[2024-04-13] MEDS: Levothyroxine 112 MCG Tablet GT (05:42)
[2024-04-13] MEDS: 0.9% Saline Lock 10 ML Syringe IV ×2 (05:43→18:43)
[2024-04-13 06:24] LABS: Hematocrit 30.6 % (37-47); Hemoglobin 10.3 g/dL (12.0-15.0); Mean Corp Hgb Conc 33.7 g/dL (32-36); Mean Corpuscular Hgb 29.5 pg (27.0-32.0); Mean Corpuscular Volume 87.7 fL (81-99); Mean Platelet Vol. 10.9 fl (6.2-12.0); Platelet Count 163 K/mm3 (150-450); RBC Distribution Width CV 13.2 % (11.6-14.6); Red Blood Count 3.49 M/mm3 (4.2-5.4); White Blood Count 4.9 K/mm3 (4.4-11.0)
[2024-04-13 06:34] LABS: Anion Gap 11 (5-15); BUN 19 mg/dL (4-19); BUN/Creat Ratio 32.8 RATIO (10-20); Calcium,Total 8.3 mg/dL (7.6-11.0); Carbon Dioxide 25.3 mmol/L (21.0-32.0); Chloride 102 mmol/L (98-108); Creatinine, Serum 0.59 mg/dL (0.70-1.20); EST Glomerular Filtration Rate 92 (>60); Estimated Creatinine Clearance 54.26 ml/min (50-250); Glucose 103 mg/dL (70-99); Potassium 3.4 mmol/L (3.3-5.1); Sodium Level 138 mmol/L (133-145)
--- NOTE | 2024-04-13 07:38 | EX.PCM.CONCC ---
Assessment & Plan Assessment/Plan (1) Acute hypoxic respiratory failure: (2) Influenza A: PLAN: Plan RECOMMENDATIONS: 1. Supplemental oxygen, if needed, to maintain saturations at or above 90%. 2. Continue Tamiflu to complete treatment course. 3. Given the lobar consolidation noted on chest imaging, will initiate course of antibiotics as well. 4. Check MRSA screen. 5. Encourage incentive spirometer use and mobilize patient as tolerated. 6. The patient currently has no ICU needs. Will sign off at this time. IMPRESSIONS: 1. Acute hypoxemic respiratory failure Most likely multifactorial in etiology with clinical concern for congestive heart failure, influenza A and possible secondary bacterial pneumonia contributing. The patient was initially maintained with BiPAP therapy and did ultimately receive IV diuretics, with subsequent improvement in her respiratory status. She is currently stable on 2 L/min via nasal cannula. Recommend continuing Tamiflu to complete treatment course. Given the lobar consolidation noted on chest x-ray, we will initiate an antibiotic treatment course as well. The patient is otherwise clinically stable for transfer out of the intensive care unit. 2. History of Parkinson's disease/hypertension/hypothyroidism Complicates care, management, recovery and prognosis. Continue home medications as indicated. This note was generated with Fusion-io dictation software. It may contain incorrect words, spelling, and punctuation that were not noted in checking the note before signing. HPI Consult Data Date of Consult: 04/13/24 HPI Narrative Reason for Consultation: Influenza HPI Narrative: The patient is a 78-year-old female, with a history as outlined below, who presented to the emergency department on April 12 via EMS with progressive dyspnea and cough of approximately 1 weeks duration. 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 She communicates primarily via writing. Her medical history is significant for hypothyroidism, hypertension and diabetes mellitus. On presentation to the emergency department, the patient was documented to be afebrile and hemodynamically stable. Laboratory evaluation revealed a normal white blood cell count. Chemistry profile was unremarkable. Lactate was within normal limits. Troponin was normal. BNP was elevated at 2262. Chest x-ray was significant for a left lower lobe consolidation. PCR for influenza A was positive. The patient subsequently received supplemental IV fluids and was started on Tamiflu. This morning, the patient appears comfortable on 2 L/min via nasal cannula. [facility] Medical History Parkinson's disease with use of electrical brain stimulation Hypothyroid DM hyperosmolarity type II Parkinson disease Home Medications ?Medication ?Instructions ?Recorded ?Last Taken ?Type carbidopa 25 mg-levodopa 100 mg 2 tab PO .COMPLEX 10/02/19 Unknown History tablet cholecalciferol (vitamin D3) 25 1,000 unit PO DAILY 10/02/19 Unknown History mcg (1,000 unit) tablet ergocalciferol (vitamin D2) 1,250 1,250 mcg PO 10/02/19 Unknown History mcg (50,000 unit) capsule furosemide 40 mg tablet 40 mg PO DAILY PRN Swelling 10/02/19 Unknown History levothyroxine 112 mcg tablet 112 mcg PO DAILY 10/02/19 Unknown History losartan 50 mg tablet 50 mg PO DAILY 10/02/19 Unknown History melatonin 5 mg tablet 5 mg PO QHS 10/02/19 Unknown History metoprolol tartrate 50 mg tablet 50 mg PO BID 10/02/19 Unknown History mirtazapine 30 mg disintegrating 30 mg PO QHS 10/02/19 Unknown History tablet potassium chloride 10 mEq 10 meq PO DAILY 10/02/19 Unknown History capsule,extended release potassium chloride 10 mEq 10 meq PO DAILY PRN Swelling 10/02/19 Unknown History tablet,extended release sitagliptin phos 100 mg-metformin 1 ea PO DAILY 10/02/19 Unknown History ER 1,000 mg tablet,extend rel 24h mp entacapone 200 mg tablet 200 mg PO 4XD 04/12/24 Unknown History ropinirole 2 mg tablet 4 mg PO DAILY 04/12/24 Unknown History sitagliptin phosphate 100 mg 100 mg PO DAILY 04/12/24 Unknown History tablet (Januvia) Allergy/AdvReac Type Severity Reaction Status Date / Time No Known Allergies Allergy Verified 02/06/21 18:33 Social History Smoking Status: Never smoker ROS ROS Narrative 10 systems were reviewed with pertinent positives as noted in the HPI above. Physical Exam Const alert and no apparent distress General Appearance: cooperative HEENT normocephalic and head/scalp atraumatic Eyes PERRL, EOMs intact bilaterally and conjunctivae normal Neck supple General: trachea midline Chest inspection of chest normal Resp normal respiratory effort Auscultation: diminished lung sounds; Negative for rales, rhonchi or wheezes Cardio regular rate and regular rhythm GI normal to inspection, nondistended, normoactive bowel sounds Inspection: GI tube present Extremity no clubbing, cyanosis or edema Skin no rashes or lesions noted Neuro CN's II-XII intact bilaterally, moves all extremities and no focal motor deficits Neuro Narrative: Nonverbal at baseline. Psych Mood & Affect: flat affect Lab / Micro Data 04/13/24 05:49 04/13/24 05:49 Labs: Laboratory Results - last 24 hr 04/12/24 11:50: WBC 5.4, RBC 3.67 L, Hgb 10.8 L, Hct 32.8 L, MCV 89.4, MCH 29.4, MCHC 32.9, RDW Std Deviation 43.0, RDW Coeff of Olive 13.0, Plt Count 160, MPV 11.5, Immature Gran % (Auto) 0.600, Neut % (Auto) 89.5 H, Lymph % (Auto) 2.9 L, [place] % (Auto) 6.4, Eos % (Auto) 0.2, Baso % (Auto) 0.4, Absolute Neuts (auto) 4.9, Absolute Lymphs (auto) 0.16 L, Nucleated RBC % 0, Sodium 135, Potassium 4.2, Chloride Direct 101, Carbon Dioxide 23.9, Anion Gap 10, BUN 18, Creatinine 0.61 L, Estim Creat Clear Calc 56.36, Est GFR (MDRD) Non-Af 92, BUN/Creatinine Ratio 30.0 H, Glucose 102 H, Calcium 8.7, Troponin T High Sens 14, NT pro BNP II 2262 H 04/12/24 13:50: Lactic Acid 1.1 04/13/24 05:49: WBC 4.9, RBC 3.49 L, Hgb 10.3 L, Hct 30.6 L, MCV 87.7, MCH 29.5, MCHC 33.7, RDW Std Deviation 42.0, RDW Coeff of Olive 13.2, Plt Count 163, MPV 10.9, Sodium 138, Potassium 3.4, Chloride 102, Carbon Dioxide 25.3, Anion Gap 11, BUN 19, Creatinine 0.59 L, Estim Creat Clear Calc 54.26, Est GFR (MDRD) Non-Af 92, BUN/Creatinine Ratio 32.8 H, Glucose 103 H, Calcium 8.3 Micro: Microbiology 04/12/24 13:50 Mucosa - Nose SARS-CoV-2, Influenza & RSV (PCR) - Final Influenzae A Rhythm Strip Rhythm Strip: Sinus Rhythm Rate: 75 Ectopy: None Imaging Radiology Impression Chest X-Ray 04/12/24 12:34 IMPRESSION: Left lower lobe infiltrate with small left pleural effusion. Reading Location: [id number] Charges/Coding Visit Charges Inpatient E&M: 28269 Init Hosp L3
--- NOTE | 2024-04-13 10:18 | CASEMGMT ---
Social Work SW participated in ICU rounds this morning, pt's daughter Cathy and Son Freddie present. SW spoke w/family outside of room after rounds, son in law Patrick now present. Cathy had already stated in ICU rounds that pt would need to go somewhere for rehab. SW created in [facility] a list of intermediate facilities in network w/pt's insurance, in pt's preferred geographic area, and complete w/quality and resource use data. Daughter Cathy states that pt will want to go to [facility], as she goes for outpt therapy there already. SW explained to family how Medicare covers SNF. They do think pt's will need to go as well, though he will not want to go. SW explained will start the referral process today for pt, will continue to follow. SW also offered support to family as both of their parents are hospitalized. Initial referral made in [facility]. Son's name and number: Keaton Newman: [phone]. MARITZA Murphy
[2024-04-13] MEDS: Piperacil/Tazobactam 3.375 GM in 0.9% Normal Saline (50mL MB+) 50 ML IV ×2 (10:22→21:23)
[2024-04-13] MEDS: Cholecalciferol (VIT D3) 25 MCG TABLET (1,000 UNITS) GT (10:24)
[2024-04-13] MEDS: Enoxaparin 40 MG/0.4 ML Syringe SC (10:25)
[2024-04-13] MEDS: Oseltamivir Phosphate 75 MG Capsule GT ×2 (10:25→21:23)
--- NOTE | 2024-04-13 11:35 | CASEMGMT ---
[facility]. Sharonda Espitia DC Planning Asst.
--- NOTE | 2024-04-13 14:51 | CASEMGMT ---
Social Work Pt was accepted at [facility], SW called daughter Cathy to let her know. MARITZA Murphy
[2024-04-13] MEDS: Jevity 1.5. 1,000 ML Bottle 240 ML GT ×3 (14:53→21:21)
--- NOTE | 2024-04-13 14:56 | CHAPLAIN ---
Type of Pastoral Visit ___ Initial Visit _x__ Follow-up Visit ___ On-call Visit ___ General Patient Visit ___ Spiritual Assessment ___ Family Conference ___ Bereavement ___ Rapid Response ___ Code Blue ___ Other (describe below) Pastoral Care Referral From _x__ Patient _x__ Family ___ Nurse ___ Physician ___ Supervisor Publications Production ___ Presser Hand ___ Other (describe below) Sacrament/Intervention _x__ Active listening ___ Anointing ___ Alevism ___ Bereavement ___ Communion ___ Jacqui exploration ___ ___ Life review _x__ Prayer ___ Reconciliation ___ Sacrament of Sick _x__ Supportive presence ___ Wedding ___ Other (describe below) Pastoral Comments follow up to this patient that was seen in ED yesterday and whose was also admitted to ICU; supportive presence of listening and prayer given to encourage and support her; pt writes on a tablet to give a report on her status and her
--- NOTE | 2024-04-13 15:08 | PN_ITS ---
Subjective Subjective Patient seen and examined. She had no active complaints. She denied any chest pain, palpitations, dizziness, nausea or vomiting. She is coughing and it is productive of yellowish tinged sputum. Review of systems is otherwise negative. On 2L of oxygen by nasal canula Objective Data Objective Data Vital Signs: Vital Signs Temp Pulse Resp BP Pulse Ox O2 Del Method O2 Flow Rate 99.0 F 85 18 157/69 H 91 Nasal Cannula 2 04/13/24 14:00 04/13/24 14:00 04/13/24 14:00 04/13/24 14:00 04/13/24 14:00 04/13/24 14:00 04/13/24 14:24 FiO2 40 04/13/24 07:07 Oxygen Flow Rate (L/min) 2 Oxygen Delivery Method Nasal Cannula Weight: 132 lb 15.02 oz Body Mass Index (BMI) 20.8 Intake & Output: Intake and Output for Last 24 Hours 04/11/24 04/12/24 04/13/24 23:59 23:59 23:59 Intake Total 805 / 805 100 / 100 Output Total 750 / 750 650 / 650 Balance 55 / 55 -550 / -550 Lab / Micro Data 04/13/24 05:49 04/13/24 05:49 Labs: Laboratory Results - last 24 hr 04/13/24 05:49: WBC 4.9, RBC 3.49 L, Hgb 10.3 L, Hct 30.6 L, MCV 87.7, MCH 29.5, MCHC 33.7, RDW Std Deviation 42.0, RDW Coeff of Olive 13.2, Plt Count 163, MPV 10.9, Sodium 138, Potassium 3.4, Chloride 102, Carbon Dioxide 25.3, Anion Gap 11, BUN 19, Creatinine 0.59 L, Estim Creat Clear Calc 54.26, Est GFR (MDRD) Non- Af 92, BUN/Creatinine Ratio 32.8 H, Glucose 103 H, Calcium 8.3 Micro: Microbiology 04/12/24 13:50 Mucosa - Nose SARS-CoV-2, Influenza & RSV (PCR) - Final Influenzae A Radiography Diagnostic Testing: Radiology Impression Echocardiogram 04/12/24 18:28 Interpretation Summary Mild concentric left ventricular hypertrophy. The left ventricular ejection fraction is 65 %. Stage 1 diastolic dysfunction. Mild mitral annular calcification. Right ventricular systolic pressure estimated to be 55 mmHg. Ordering Physician: Juno Benitez Referring Physician: YOMAIRA SHARP Performed By: Niki Cordero RDCS Rhythm Strip Rhythm Strip: Sinus Rhythm Rate: 75 Ectopy: None Physical Exam Const alert, oriented x3 and no apparent distress Constitutional Narrative: flat affect, has expressive aphasia due to parkinson's disease. Able to mouth her words General Appearance: cooperative HEENT normocephalic, head/scalp atraumatic, moist oral mucous membranes and oropharynx normal Eyes PERRL and EOMs intact bilaterally Neck no lymphadenopathy and supple Lymph Lymphatic: no lymphadenopathy noted and no lymphedema noted Resp Resp Narrative: mildly diminished breath sounds bibasally, no wheezes or crackles. On 2L of oxygen by nasal canula Cardio regular rate, regular rhythm, S1 normal heart sound, S2 normal heart sound and no murmurs GI normal to inspection, nondistended, normoactive bowel sounds, soft to palpation, non-tender and non-distended Extremity normal capillary refill, no clubbing, cyanosis or edema and no calf tenderness Skin General Skin Exam: no breakdown Neuro CN's II-XII intact bilaterally and no sensory deficits noted Neuro Narrative: expressive aphasia due to Parkinson's disease, though she is able to mouth her words Coordination / Balance: [id number] test normal Motor Exam: general weakness Psych thought process normal and cooperative Assessment & Plan Assessment/Plan (1) Acute hypoxic respiratory failure: (2) Influenza A: (3) Generalized weakness: PLAN: Plan #Acute hypoxic respiratory failure due to influenza A infection with concern for heart failure * admitted to the ICU initially due to patient requiring BIPAP. * Chest x-ray showed left lower lobe pneumonia and mild cardiomegaly and BNP was also elevated. * Also tested positive for influenza. Now off BiPAP and on 2 L of oxygen. * Transfer out of ICU. Titrate oxygen to maintain saturation above 90%. Breathing treatments bronchodilators. On Tamiflu and IV Lasix. 2D echo also done. * Patient started on antibiotics on account of evidence of pneumonia. Chest x- ray. Sputum culture ordered and MRSA screen also ordered. #Advanced Parkinson's disease * Stable. Does have some expressive aphasia on account of the Parkinson's disease. On entacapone #Hypothyroidism: Present losartan held on admission #Hypothyroidism: On Synthroid #Type 2 diabetes mellitus: On metformin and sitagliptin. DVT prophylaxis: Lovenox Charges/Coding Visit Charges Inpatient E&M: 60589 Subs Hosp L2
[2024-04-13] MEDS: MELATONIN 10 MG TABLET 5 MG GT (21:22)
[2024-04-13] MEDS: Pramipexole Di-HCl 0.5 MG Tablet 1.5 MG PO (21:22)
[2024-04-13] MEDS: Mirtazapine 30 MG Tablet GT (21:23)
[2024-04-14 03:10] VITALS: BP 106/54; PULSE 66; RESP 18; TEMP 36.6; O2SAT 97
[2024-04-14] MEDS: Jevity 1.5. 1,000 ML Bottle 240 ML GT ×5 (06:05→22:07)
[2024-04-14] MEDS: Carbidopa/Levodopa 25/100 Tablet GT ×5 (06:06→22:06)
[2024-04-14] MEDS: Levothyroxine 112 MCG Tablet GT (06:06)
[2024-04-14] MEDS: Piperacil/Tazobactam 3.375 GM in 0.9% Normal Saline (50mL MB+) 50 ML IV ×3 (06:07→22:07)
[2024-04-14 08:10] VITALS: O2SAT 92
[2024-04-14 08:28] LABS: Absolute Lymphocyte Count 0.62 X10^3/uL (0.83-4.51); Absolute Neutrophil Count 2.4 X10^3/uL (2.0-7.7); Hematocrit 33.3 % (37-47); Lymphocyte # 0.62 X10^3/ul (0.83-4.51); Lymphocyte % 19.6 % (19-41); Mean Corpuscular Hgb 29.5 pg (27.0-32.0); Mean Corpuscular Volume 89.3 fL (81-99); Mean Platelet Vol. 10.8 fl (6.2-12.0); Monocyte# 0.16 X10^3/uL; NRBC Flagged by Analyzer 0 % (0-5); Neutrophil # 2.36 X10^3/uL (2.7-7.7); Neutrophil % 74.5 % (47-70); Platelet Count 177 K/mm3 (150-450); RBC Distribution Width CV 12.9 % (11.6-14.6); RBC Distribution Width SD 42.2 fl (35.1-43.9); Red Blood Count 3.73 M/mm3 (4.2-5.4); White Blood Count 3.2 K/mm3 (4.4-11.0)
[2024-04-14 09:10] LABS: Anion Gap 11 (5-15); BUN 24 mg/dL (4-19); BUN/Creat Ratio 34.7 RATIO (10-20); Calcium,Total 8.3 mg/dL (7.6-11.0); Carbon Dioxide 27.7 mmol/L (21.0-32.0); Chloride 103 mmol/L (98-108); Creatinine, Serum 0.69 mg/dL (0.70-1.20); EST Glomerular Filtration Rate 89 (>60); Estimated Creatinine Clearance 54.26 ml/min (50-250); Glucose 175 mg/dL (70-99); Potassium 3.1 mmol/L (3.3-5.1); Sodium Level 142 mmol/L (133-145)
[2024-04-14 10:03] VITALS: BP 122/58; PULSE 75; RESP 16; TEMP 36.7; O2SAT 96
[2024-04-14] MEDS: Enoxaparin 40 MG/0.4 ML Syringe SC (10:12)
[2024-04-14] MEDS: Cholecalciferol (VIT D3) 25 MCG TABLET (1,000 UNITS) GT (10:13)
[2024-04-14] MEDS: Oseltamivir Phosphate 75 MG Capsule GT ×2 (10:13→22:07)
--- NOTE | 2024-04-14 13:33 | PN_ITS ---
Subjective Subjective Patient seen and examined. She had no active complaints. As stated in previous notes, she is largely mute with expressive aphasia from severe Parkinson's disease but is able to vocalize some words. She denied being in pain and says she felt good today. She does have a cough. She is on 2 L of oxygen. Review of systems otherwise negative. Objective Data Objective Data Vital Signs: Vital Signs Temp Pulse Resp BP Pulse Ox O2 Del Method O2 Flow Rate 98.1 F 75 16 122/58 H 96 Nasal Cannula 2 04/14/24 10:03 04/14/24 10:03 04/14/24 10:03 04/14/24 10:03 04/14/24 10:03 04/14/24 10:03 04/14/24 10:03 FiO2 40 04/13/24 07:07 Oxygen Flow Rate (L/min) 2 Oxygen Delivery Method Nasal Cannula Weight: 132 lb 15.02 oz Body Mass Index (BMI) 20.8 Intake & Output: Intake and Output for Last 24 Hours 04/12/24 04/13/24 04/14/24 23:59 23:59 23:59 Intake Total 805 / 805 330 / 330 100 / 100 Output Total 750 / 750 650 / 1500 1500 / 1500 Balance 55 / 55 -320 / -1170 -1400 / -1400 Lab / Micro Data 04/14/24 07:58 04/14/24 07:58 Labs: Laboratory Results - last 24 hr 04/14/24 07:58: WBC 3.2 L, RBC 3.73 L, Hgb 11.0 L, Hct 33.3 L, MCV 89.3, MCH 29.5, MCHC 33.0, RDW Std Deviation 42.2, RDW Coeff of Olive 12.9, Plt Count 177, MPV 10.8, Immature Gran % (Auto) 0.900, Neut % (Auto) 74.5 H, Lymph % (Auto) 19.6, [place] % (Auto) 5.0, Eos % (Auto) 0.0, Baso % (Auto) 0.0, Absolute Neuts (auto) 2.4, Absolute Lymphs (auto) 0.62 L, Nucleated RBC % 0, Sodium 142, P otassium 3.1 L, Chloride 103, Carbon Dioxide 27.7, Anion Gap 11, BUN 24 H, C reatinine 0.69 L, Estim Creat Clear Calc 54.26, Est GFR (MDRD) Non-Af 89, B UN/Creatinine Ratio 34.7 H, Glucose 175 H, Calcium 8.3 Micro: Microbiology 04/12/24 13:50 Mucosa - Nose SARS-CoV-2, Influenza & RSV (PCR) - Final Influenzae A Rhythm Strip Rhythm Strip: Sinus Rhythm Rate: 75 Ectopy: None Physical Exam Const alert and oriented x3 Constitutional Narrative: flat affect, has expressive aphasia due to parkinson's disease. Able to mouth her words General Appearance: cooperative and comfortable HEENT normocephalic, head/scalp atraumatic, hearing grossly normal bilaterally, nasal mucous membranes and turbinates normal, moist oral mucous membranes and oropharynx normal Eyes PERRL, EOMs intact bilaterally and conjunctivae normal Neck full ROM, no lymphadenopathy and supple Lymph Lymphatic: no lymphadenopathy noted and no lymphedema noted Chest inspection of chest normal Resp normal respiratory effort and no use of accessory muscles Resp Narrative: mildly diminished breath sounds bibasally, no wheezes or crackles. Still On 2L of oxygen by nasal canula Cardio regular rate, regular rhythm, S1 normal heart sound, S2 normal heart sound, no murmurs and peripheral pulses 2+ throughout GI normal to inspection, nondistended, normoactive bowel sounds, soft to palpation, non-tender and non-distended Back/Spine normal ROM Extremity normal to inspection, full ROM, normal capillary refill, no clubbing, cyanosis or edema, no calf tenderness and no pedal edema Skin no rashes or lesions noted General Skin Exam: no breakdown Neuro no sensory deficits noted Neuro Narrative: expressive aphasia due to Parkinson's disease, though she is able to mouth her words Coordination / Balance: [id number] test normal Motor Exam: general weakness Psych mental status grossly normal, thought process normal and cooperative Appearance: appropriate Assessment & Plan Assessment/Plan (1) Acute hypoxic respiratory failure: (2) Influenza A: (3) Generalized weakness: PLAN: Plan #Acute hypoxic respiratory failure due to influenza A infection with concern for heart failure * admitted to the ICU initially due to patient requiring BIPAP. * Chest x-ray showed left lower lobe pneumonia and mild cardiomegaly and BNP was also elevated. * Also tested positive for influenza. Now off BiPAP and on 2 L of oxygen. * Now transferred out of ICU. Titrate oxygen to maintain saturation above 90%. Breathing treatments bronchodilators. On Tamiflu and IV Lasix. * Patient started on antibiotics on account of evidence of pneumonia. Chest x- ray. Sputum culture ordered and MRSA screen also ordered. * 2D echo showed EF of 65% with stage I diastolic dysfunction and mild concentric left ventricular hypertrophy with right ventricular systolic pressure estimated to be 55 mmHg. * Placed on Lasix p.o. 40 mg daily. #Pulmonary artery hypertension: * As per 2D echo which showed RVSP of 55 mmHg. * Likely due to underlying stage I diastolic dysfunction. * On Lasix. Will monitor. * #Advanced Parkinson's disease * Stable. Does have some expressive aphasia on account of the Parkinson's disease. On entacapone #Hypothyroidism: Present losartan held on admission #Hypothyroidism: On Synthroid #Type 2 diabetes mellitus: On metformin and sitagliptin. DVT prophylaxis: Lovenox Charges/Coding Visit Charges Inpatient E&M: 78447 Subs Hosp L2
[2024-04-14] MEDS: Furosemide 40 MG Tablet PO (15:01)
[2024-04-14] MEDS: 0.9% Saline Lock 10 ML Syringe IV (15:02)
[2024-04-14 15:03] VITALS: BP 141/58; PULSE 72; RESP 16; TEMP 36.6; O2SAT 99
[2024-04-14 17:32] VITALS: BP 111/52; PULSE 80; RESP 18; TEMP 36.9; O2SAT 93
[2024-04-14] MEDS: Pramipexole Di-HCl 0.5 MG Tablet 1.5 MG PO (22:06)
[2024-04-14] MEDS: Mirtazapine 30 MG Tablet GT (22:07)
[2024-04-14] MEDS: MELATONIN 10 MG TABLET 5 MG GT (22:07)
[2024-04-14 23:30] VITALS: BP 141/60; PULSE 83; RESP 18; TEMP 36.7; O2SAT 97
[2024-04-15 03:30] VITALS: BP 137/65; PULSE 60; RESP 16; TEMP 36.6; O2SAT 100
[2024-04-15] MEDS: 0.9% Saline Lock 10 ML Syringe IV ×3 (05:26→21:01)
[2024-04-15] MEDS: Piperacil/Tazobactam 3.375 GM in 0.9% Normal Saline (50mL MB+) 50 ML IV ×3 (05:29→21:02)
[2024-04-15 06:00] VITALS: BMI 20.4
[2024-04-15] MEDS: Jevity 1.5. 1,000 ML Bottle 240 ML GT ×4 (06:18→21:23)
[2024-04-15] MEDS: Carbidopa/Levodopa 25/100 Tablet GT ×4 (06:19→21:23)
[2024-04-15] MEDS: Levothyroxine 112 MCG Tablet GT (06:19)
[2024-04-15 07:00] VITALS: O2SAT 95
[2024-04-15 09:14] LABS: Anion Gap 12 (5-15); BUN 19 mg/dL (4-19); Calcium,Total 8.5 mg/dL (7.6-11.0); Carbon Dioxide 28.4 mmol/L (21.0-32.0); Chloride 104 mmol/L (98-108); Creatinine, Serum 0.66 mg/dL (0.70-1.20); EST Glomerular Filtration Rate 90 (>60); Estimated Creatinine Clearance 53.98 ml/min (50-250); Glucose 108 mg/dL (70-99); Magnesium 2.1 mg/dL (1.5-2.2); Potassium 3.5 mmol/L (3.3-5.1); Sodium Level 144 mmol/L (133-145)
--- NOTE | 2024-04-15 09:26 | CASEMGMT ---
Discharge Planning Updates sent to [facility]. Sharonda Espitia DC Planning Asst.
[2024-04-15 09:29] LABS: Phosphorus 3.4 mg/dL (2.7-4.5)
[2024-04-15 09:30] VITALS: BP 116/60; PULSE 73; RESP 16; TEMP 36.7; O2SAT 96
[2024-04-15] MEDS: Oseltamivir Phosphate 75 MG Capsule GT ×2 (09:49→21:22)
[2024-04-15] MEDS: Furosemide 40 MG Tablet PO (09:49)
[2024-04-15] MEDS: Cholecalciferol (VIT D3) 25 MCG TABLET (1,000 UNITS) GT (09:50)
[2024-04-15 11:57] VITALS: BP 116/61; PULSE 72; RESP 16; TEMP 36.4; O2SAT 93
--- NOTE | 2024-04-15 12:07 | SUR.PREOP ---
Patient arrived in preop and upon check in patient received jevity TF 240ml bolus per peg this morning at 0950. anesthesia and dr. garcía aware. pending decision when to proceed
[2024-04-15 14:40] VITALS: BP 123/57; PULSE 80; RESP 18; TEMP 36.7; O2SAT 93
--- NOTE | 2024-04-15 14:52 | PN.HOSP_ITS ---
Reason for Visit Reason for Visit: Diagnoses Influenza due to other identified influenza virus with other respiratory manifestations (04/12/24) Acute respiratory failure with hypoxia (04/12/24) Weakness (04/12/24) Subjective Subjective Saw patient at bedside this morning. Patient was sitting up comfortably in bedside chair and in no acute distress. She is nonverbal at baseline due to advanced Parkinson disease. She shook her head no when asked if she had any pain or discomfort this morning. No other new concerns today. Objective Data Objective Data Vital Signs: Vital Signs Temp Pulse Resp BP Pulse Ox O2 Del Method O2 Flow Rate 98.1 F 80 18 123/57 H 93 Room Air 2 04/15/24 14:40 04/15/24 14:40 04/15/24 14:40 04/15/24 14:40 04/15/24 14:40 04/15/24 14:40 04/15/24 11:57 FiO2 40 04/13/24 07:07 Oxygen Flow Rate (L/min) 2 Oxygen Delivery Method Room Air Weight: 59 kg Body Mass Index (BMI) 20.4 Intake & Output: Intake and Output for Last 24 Hours 04/13/24 04/14/24 04/15/24 23:59 23:59 23:59 Intake Total 330 / 330 570 / 570 880 / 880 Output Total 650 / 1500 1800 / 1800 Balance -320 / -1170 -1230 / -1230 880 / 880 Lab / Micro Data 04/14/24 07:58 04/15/24 08:35 Labs: Laboratory Results - last 24 hr 04/15/24 08:35: Sodium 144, Potassium 3.5, Chloride 104, Carbon Dioxide 28.4, Anion Gap 12, BUN 19, Creatinine 0.66 L, Estim Creat Clear Calc 53.98, Est GFR (MDRD) Non-Af 90, BUN/Creatinine Ratio 29.0 H, Glucose 108 H, Calcium 8.5, Phosphorus 3.4, Magnesium 2.1 Micro: Microbiology 04/12/24 13:50 Mucosa - Nose SARS-CoV-2, Influenza & RSV (PCR) - Final Influenzae A Rhythm Strip Rhythm Strip: Sinus Rhythm Rate: 75 Ectopy: None Physical Exam Const alert, no apparent distress and average body habitus Constitutional Narrative: Elderly female, advanced Parkinson's and nonverbal at baseline but able to answer questions by writing things down, making appropriate eye contact, mildly fatigued appearing but improved from admission, otherwise sitting up comfortably in bedside chair and in no acute distress. General Appearance: cooperative and comfortable HEENT normocephalic, head/scalp atraumatic, hearing grossly normal bilaterally, nasal mucous membranes and turbinates normal and moist oral mucous membranes Eyes PERRL, EOMs intact bilaterally and conjunctivae normal Neck full ROM Chest inspection of chest normal Resp normal respiratory effort and no use of accessory muscles Resp Narrative: Breathing comfortably on room air at rest. Mildly decreased breath sounds in bilateral lung bases but no crackles or wheezing noted, improved from admission. Cardio regular rate, regular rhythm, no murmurs and peripheral pulses 2+ throughout GI normal to inspection, nondistended, normoactive bowel sounds, soft to palpation, non-tender and non-distended GI Narrative: PEG tube in place. Back/Spine normal ROM Extremity normal to inspection, full ROM and no pedal edema Skin no rashes or lesions noted Neuro Neuro Narrative: Rigidity noted with movement. Stable. Psych mental status grossly normal Psych Narrative: Flat affect. Assessment & Plan Assessment/Plan (1) Acute hypoxic respiratory failure: (2) Generalized weakness: (3) Influenza A: PLAN: Plan Patient is a 78-year-old female who presented [facility] ED on 04/12/2024 with worsening URI symptoms. 1. Acute hypoxic respiratory failure secondary to influenza A infection and suspected concurrent bacterial pneumonia, improved; moderate pulmonary hypertension ? Pulmonology followed. Positive for influenza A on admit. Chest x-ray showed mild volume overload, concern for left lower lobe pneumonia and mild cardiomegaly. BNP elevated at 2200. Echo showed EF 65%, stage I diastolic dysfunction, moderate pulmonary hypertension with RVSP 55 mmHg. Required BiPAP on admit but was weaned back to 4 L nasal cannula by evening of admission. Continue Tamiflu and IV Zosyn for now, plan to complete 5-day course of Tamiflu and 7-day course of antibiotics total. Weaned off supplemental oxygen by 04/15. Stable for discharge from a respiratory standpoint. 2. Acute on chronic debility in setting of advanced Parkinson's disease ? PT/OT/case management following. Remains weaker than baseline due to flu infection. Planning for SNF on discharge. Continue home Parkinson's medications. 3. Dysphagia with PEG tube in place ? Patient n.p.o. baseline given severe dysphagia in setting of Parkinson's disease, is on tube feeds via PEG tube. Plan was for PEG tube exchange on 04/15 but it appears there was an issue with this so planning for exchange on 04/16 and patient will then be medically ready for discharge. Medical conditions: ? Hypertension: Continue home Lopressor and losartan. ? Hypothyroidism: Continue home Synthroid. DVT prophylaxis: Lovenox CODE STATUS: DNR CCA, okay to intubate Expected disposition: SNF, 1 to 2 days Total clinical time spent by myself addressing the patient's medical issues, reviewing all the data, and collaborating with patient's care team: 35 minutes. Charges/Coding Visit Charges Inpatient E&M: 49620 Subs Hosp L2
--- NOTE | 2024-04-15 18:41 | EX.PCM.CON.G ---
HPI Consult Data Date of Consult: 04/15/24 HPI Narrative Reason for Consultation: Malfunctioning PEG HPI Narrative: MARYELLEN MCMILLAN, is a 78-year-old female presented by EMS because of shortness of breath, she states she has had a cough and some trouble breathing for about a week. She was hypoxic 85% on room air for EMS, very weak at home, to the point where she was unable to get up. has also been ill with respiratory symptoms. She came to the ED but was unable to provide any history due to personal illness. She was diagnosed with acute influenza A. She has been having some problems with her PEG tube so I was consulted for PEG tube exchange. FORMERLY [facility] Medical History Parkinson's disease with use of electrical brain stimulation Hypothyroid DM hyperosmolarity type II Parkinson disease Home Medications ?Medication ?Instructions ?Recorded ?Last Taken ?Type carbidopa 25 mg-levodopa 100 mg 2 tab PO .COMPLEX 10/02/19 Unknown History tablet cholecalciferol (vitamin D3) 25 1,000 unit PO DAILY 10/02/19 Unknown History mcg (1,000 unit) tablet ergocalciferol (vitamin D2) 1,250 1,250 mcg PO 10/02/19 Unknown History mcg (50,000 unit) capsule furosemide 40 mg tablet 40 mg PO DAILY PRN Swelling 10/02/19 Unknown History levothyroxine 112 mcg tablet 112 mcg PO DAILY 10/02/19 Unknown History losartan 50 mg tablet 50 mg PO DAILY 10/02/19 Unknown History melatonin 5 mg tablet 5 mg PO QHS 10/02/19 Unknown History metoprolol tartrate 50 mg tablet 50 mg PO BID 10/02/19 Unknown History mirtazapine 30 mg disintegrating 30 mg PO QHS 10/02/19 Unknown History tablet potassium chloride 10 mEq 10 meq PO DAILY 10/02/19 Unknown History capsule,extended release potassium chloride 10 mEq 10 meq PO DAILY PRN Swelling 10/02/19 Unknown History tablet,extended release sitagliptin phos 100 mg-metformin 1 ea PO DAILY 10/02/19 Unknown History ER 1,000 mg tablet,extend rel 24h mp entacapone 200 mg tablet 200 mg PO 4XD 04/12/24 Unknown History ropinirole 2 mg tablet 4 mg PO DAILY 04/12/24 Unknown History sitagliptin phosphate 100 mg 100 mg PO DAILY 04/12/24 Unknown History tablet (Januvia) Allergy/AdvReac Type Severity Reaction Status Date / Time No Known Allergies Allergy Verified 02/06/21 18:33 Social History Smoking Status: Never smoker ROS Constitutional Constitutional: Reports fatigue and weakness; Denies chills or fever(s) Eyes Eyes: Denies change in vision Cardiovascular Cardiovascular: Reports dyspnea on exertion; Denies chest pain Respiratory/Chest Respiratory/Chest: Reports cough, dyspnea, shortness of breath at rest and shortness of breath with exertion; Denies productive cough or wheezing Gastrointestinal Gastrointestinal: Denies abdominal pain Musculoskeletal Musculoskeletal: Denies arthralgias or myalgias Neurologic Neurologic: Denies dizziness or headache(s) Physical Exam Const alert and oriented x3 Constitutional Narrative: flat affect, has expressive aphasia due to parkinson's disease. Able to mouth her words General Appearance: cooperative and comfortable HEENT normocephalic, head/scalp atraumatic, hearing grossly normal bilaterally, nasal mucous membranes and turbinates normal, moist oral mucous membranes and oropharynx normal Eyes PERRL, EOMs intact bilaterally and conjunctivae normal Neck full ROM, no lymphadenopathy and supple Lymph Lymphatic: no lymphadenopathy noted and no lymphedema noted Chest inspection of chest normal Resp normal respiratory effort and no use of accessory muscles Resp Narrative: mildly diminished breath sounds bibasally, no wheezes or crackles. Still On 2L of oxygen by nasal canula Cardio regular rate, regular rhythm, S1 normal heart sound, S2 normal heart sound, no murmurs and peripheral pulses 2+ throughout GI normal to inspection, nondistended, normoactive bowel sounds, soft to palpation, non-tender and non-distended Back/Spine normal ROM Extremity normal to inspection, full ROM, normal capillary refill, no clubbing, cyanosis or edema, no calf tenderness and no pedal edema Skin no rashes or lesions noted General Skin Exam: no breakdown Neuro no sensory deficits noted Neuro Narrative: expressive aphasia due to Parkinson's disease, though she is able to mouth her words Coordination / Balance: [id number]-aw-rsty test normal Motor Exam: general weakness Psych mental status grossly normal, thought process normal and cooperative Appearance: appropriate Lab / Micro Data 04/14/24 07:58 04/15/24 08:35 Labs: Laboratory Results - last 24 hr 04/15/24 08:35: Sodium 144, Potassium 3.5, Chloride 104, Carbon Dioxide 28.4, Anion Gap 12, BUN 19, Creatinine 0.66 L, Estim Creat Clear Calc 53.98, Est GFR (MDRD) Non-Af 90, BUN/Creatinine Ratio 29.0 H, Glucose 108 H, Calcium 8.5, Phosphorus 3.4, Magnesium 2.1 Rhythm Strip Rhythm Strip: Sinus Rhythm Rate: 75 Ectopy: None Assessment & Plan Assessment/Plan (1) Acute hypoxic respiratory failure: (2) Influenza A: (3) Generalized weakness: (4) PEG tube malfunction: PLAN: Plan 78-year-old with Parkinson disease and acute hypoxic respiratory failure secondary to acute influenza A. admitted to the ICU initially due to patient requiring BIPAP. Chest x-ray showed left lower lobe pneumonia and mild cardiomegaly and BNP was also elevated. Also tested positive for influenza. Now off BiPAP and on 2 L of oxygen. Pulmonary artery hypertension: As per 2D echo which showed RVSP of 55 mmHg. Likely due to underlying stage I diastolic dysfunction. On Lasix. Will monitor. Advanced Parkinson's disease Stable. Does have some expressive aphasia on account of the Parkinson's disease. On entacapone Malfunctioning PEG tube she will undergo : An EGD with PEG exchange tomorrow. Please stop her PEG feedings at midnight. Charges/Coding Visit Charges Inpatient E&M: 40166 Init Hosp L3
[2024-04-15 20:40] VITALS: BP 156/64; PULSE 75; RESP 18; TEMP 36.8; O2SAT 97
[2024-04-15] MEDS: Pramipexole Di-HCl 0.5 MG Tablet 1.5 MG PO (21:23)
[2024-04-15] MEDS: Mirtazapine 30 MG Tablet GT (21:23)
[2024-04-15] MEDS: MELATONIN 10 MG TABLET 5 MG GT (21:23)
[2024-04-16] VITALS (12 sets, daily range): BP systolic 89–148; BP diastolic 56–70; PULSE 67–75; RESP 16–69; TEMP 36.2–36.8; O2SAT 96–100
[2024-04-16] MEDS: Piperacil/Tazobactam 3.375 GM in 0.9% Normal Saline (50mL MB+) 50 ML IV ×3 (05:18→21:53)
[2024-04-16] MEDS: Carbidopa/Levodopa 25/100 Tablet GT ×4 (05:35→21:51)
[2024-04-16] MEDS: Levothyroxine 112 MCG Tablet GT (05:35)
--- NOTE | 2024-04-16 10:17 | CASEMGMT ---
Discharge Planning Carlita notified that pt will likely dc over the weekend. Green sheet and transport for placed on chart. Sharonda Espitia DC Planning Asst.
--- NOTE | 2024-04-16 10:31 | PCM.PRE.AN2 ---
ASA Classification* ASA Classification ASA Classification: 3 Assessment & Plan Anesthesia* Anesthesia Assessment Anesthesia Assessment: Discussed sedation and/or anesthesia options, risks, benefits, and alternatives with patient/parents/legal guardian/POA. Questions invited. The patient/parents/legal guardian/POA seems to understand and agrees to proceed with anesthesia plan. Reviewed the physical assessment, medical history, allergy history and patient home medications list prior to surgery/procedure/anesthetic and documented any changes. Performed airway and anesthesia risk assessments. Anesthesia Type Anesthesia Type: MAC (FLU positive precautions) Anesthesia Focused Assessment* Temperature: 97.8 F Pulse Rate: 72 Blood Pressure: 147/69 Respiratory Rate: 18 Pulse Ox: 96 Oxygen Flow Rate (L/min): 2 Fraction of Inspired Oxygen (FIO2): 40 Airway Assessment Mouth opens: >3 cm Mallampati Score: II Focused Labs Anesthesia Preop lab: CBC WBC 3.2 K/mm3 (4.4-11.0) L 04/14/24 07:58 04/14/24 RBC 3.73 M/mm3 (4.2-5.4) L 04/14/24 07:58 04/14/24 Hgb 11.0 g/dL (12.0-15.0) L 04/14/24 07:58 04/14/24 Hct 33.3 % (37-47) L 04/14/24 07:58 04/14/24 Plt Count 177 K/mm3 (150-450) 04/14/24 07:58 04/14/24 CHEMISTRY Potassium 3.5 mmol/L (3.3-5.1) 04/15/24 08:35 04/15/24 Sodium 144 mmol/L (133-145) 04/15/24 08:35 04/15/24 Magnesium 2.1 mg/dL (1.5-2.2) 04/15/24 08:35 04/15/24 Phosphorus 3.4 mg/dL (2.7-4.5) 04/15/24 08:35 04/15/24 BUN 19 mg/dL (4-19) 04/15/24 08:35 04/15/24 Creatinine 0.66 mg/dL (0.70-1.20) L 04/15/24 08:35 04/15/24 Glucose 108 mg/dL (70-99) H 04/15/24 08:35 04/15/24 COAG Pre-Assessment Diagnosis/Proposed Procedure Planned Operative Procedure(s): EGD, PEG placement Anesthesia History Anesthesia History - closed circuit screen watcher: Anesthesia History - closed circuit screen watcher Hx Hospitalization Any Problems With Anesthesia Cholinesterase deficiency You/Your Family Experience fever (hyperthermia) with Relationship Recent Exposure to Contagious Disease Does patient have nerve stimulator Patient instructed to have device shut off --Does patient have Pacemaker or ICD? When Was Last Pacemaker Check QUESTION #4 FULL TEXT: You/Your Family Experience fever (hyperthermia) with Anesthesia Last Oral Intake Last Oral intake: Last Oral Intake NPO since Meds taken in AM with sips of water? Meds patient instructed to take am of surgery PONV PONV - closed circuit screen watcher: PONV - closed circuit screen watcher Female HX of Motion Sickness HX of N/V After Surgery Non-Smoker Duration of Surgery greater than 60 minutes Number of Risk Factors PONV Score Height & Weight Height & Weight: Anesthesia: Height & Weight Height 5 ft 6.93 in 04/13/24 10:57 Weight: 59 kg 04/15/24 06:00 Body Mass Index (BMI) 20.4 04/15/24 06:00 Respiratory Assessment Respiratory Assessment - closed circuit screen watcher: Respiratory Tract Infection Hx - closed circuit screen watcher Hx Respiratory Tract Infection STOP Sleep Apnea STOP Sleep Apnea - closed circuit screen watcher: STOP Sleep Apnea - closed circuit screen watcher Hx Hypertension Yes 04/13/24 14:24 Hx Sleep Apnea No 04/12/24 18:28 CPAP BIPAP Do you snore loudly (louder No 04/12/24 18:28 than talking or can be heard Do you often feel tired/ No 04/12/24 18:28 fatigued/ sleepy during daytime? Has anyone observed you stop No 04/12/24 18:28 breathing during sleep? STOP Results Negative 04/12/24 18:28 QUESTION #5 FULL TEXT : Do you snore loudly (louder than talking or can be heard through closed doors)? 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 Specify any problems Hx of Preganancy in last 3 Months Nurse Filling Out Transfusion & Questions: Date: Time: Patient unable to answer at Yes 04/12/24 18:28 this time (ie. confused, unrespo /Reproduction History /Reproductive History - closed circuit screen watcher: /Reproductive Hx- closed circuit screen watcher Hx Now Gestational Age (in weeks): EDC: Hx Hx Para Hx Section SAB Active Medications Active Medications: Current Medications Generic Name Dose Route Start Last Admin Trade Name Freq PRN Reason Stop Dose Admin Acetaminophen 650 mg 04/12/24 18:28 Acetaminophen 325 Mg Tablet PO Q6H PRN PRN Pain 1-10 Or Fever>100.7 Carbidopa/Levodopa 2 tablet 04/13/24 07:00 04/16/24 05:35 Carbidopa/Levodopa 25/100 Tablet GT 2 tablet 0700,1030,1400 MODESTA Administration Carbidopa/Levodopa 1 tablet 04/12/24 21:00 04/15/24 21:23 Carbidopa/Levodopa 25/100 Tablet GT 1 tablet 1730,2100 MODESTA Administration Cholecalciferol 25 mcg 04/13/24 10:00 04/15/24 09:50 Cholecalciferol (Vit D3) 25 Mcg Tablet (1,000 Units) GT 25 mcg DAILY MODESTA Administration Enoxaparin Sodium 40 mg 04/13/24 10:00 04/15/24 09:50 Enoxaparin 40 Mg/0.4 Ml Syringe SC Not Given DAILY MODESTA Entacapone 200 mg 04/13/24 07:00 04/16/24 05:35 Entacapone 200 Mg Tablet GT 200 mg 0700,1030,1400,1730 MODESTA Administration Enteral Nutritional Formula 240 ml 04/13/24 14:00 04/16/24 09:45 Jevity 1.5. 1,000 Ml Bottle GT Not Given 5X/DAY MODESTA Furosemide 40 mg 04/14/24 13:40 04/15/24 09:49 Furosemide 40 Mg Tablet PO 40 mg DAILY MODESTA Administration Protocol Sodium Chloride 100 mls @ 15 mls/hr 04/12/24 18:31 IV .Q6H40M PRN Saline Flush Sodium Chloride 100 mls @ 15 mls/hr 04/12/24 18:31 IV .Q6H40M PRN Additional IVPB Infusion Piperacillin Sod/Tazobactam 50 mls @ 12.5 mls/hr 04/13/24 09:45 04/16/24 09:18 Sod 3.375 gm/ Sodium Chloride IV Infused Q8 MODESTA Infusion Levothyroxine Sodium 112 mcg 04/13/24 06:00 04/16/24 05:35 Levothyroxine 112 Mcg Tablet GT 112 mcg DAILY@0600 MODESTA Administration Melatonin 5 mg 04/12/24 22:00 04/15/24 21:23 Melatonin 10 Mg Tablet GT 5 mg QHS MODESTA Administration Melatonin 3 mg 04/12/24 18:41 Melatonin 3 Mg Tablet GT QHS PRN PRN INSOMNIA Mirtazapine 30 mg 04/12/24 22:00 04/15/24 21:23 Mirtazapine 30 Mg Tablet GT 30 mg QHS MODESTA Administration Ondansetron HCl 4 mg 04/12/24 18:28 Ondansetron 4 Mg/2 Ml Vial IV Q8H PRN PRN NAUSEA/VOMITING Oseltamivir Phosphate 75 mg 04/13/24 10:00 04/15/24 21:22 Oseltamivir Phosphate 75 Mg Capsule GT 04/17/24 22:01 75 mg BID MODESTA Administration Pramipexole Dihydrochloride 1.5 mg 04/12/24 22:00 04/15/24 21:23 Pramipexole Di-Hcl 0.5 Mg Tablet PO 1.5 mg 2200 MODESTA Administration Sodium Chloride 10 - 40 ml 04/12/24 18:31 04/15/24 21:01 0.9% Saline Lock 10 Ml Syringe IV 10 ml UD PRN Administration SALINE FLUSH PFSH Medical History Parkinson's disease with use of electrical brain stimulation Hypothyroid DM hyperosmolarity type II Parkinson disease Home Medications ?Medication ?Instructions ?Recorded ?Last Taken ?Type carbidopa 25 mg-levodopa 100 mg 2 tab PO .COMPLEX 10/02/19 Unknown History tablet cholecalciferol (vitamin D3) 25 1,000 unit PO DAILY 10/02/19 Unknown History mcg (1,000 unit) tablet ergocalciferol (vitamin D2) 1,250 1,250 mcg PO 10/02/19 Unknown History mcg (50,000 unit) capsule furosemide 40 mg tablet 40 mg PO DAILY PRN Swelling 10/02/19 Unknown History levothyroxine 112 mcg tablet 112 mcg PO DAILY 10/02/19 Unknown History losartan 50 mg tablet 50 mg PO DAILY 10/02/19 Unknown History melatonin 5 mg tablet 5 mg PO QHS 10/02/19 Unknown History metoprolol tartrate 50 mg tablet 50 mg PO BID 10/02/19 Unknown History mirtazapine 30 mg disintegrating 30 mg PO QHS 10/02/19 Unknown History tablet potassium chloride 10 mEq 10 meq PO DAILY 10/02/19 Unknown History capsule,extended release potassium chloride 10 mEq 10 meq PO DAILY PRN Swelling 10/02/19 Unknown History tablet,extended release sitagliptin phos 100 mg-metformin 1 ea PO DAILY 10/02/19 Unknown History ER 1,000 mg tablet,extend rel 24h mp entacapone 200 mg tablet 200 mg PO 4XD 04/12/24 Unknown History ropinirole 2 mg tablet 4 mg PO DAILY 04/12/24 Unknown History sitagliptin phosphate 100 mg 100 mg PO DAILY 04/12/24 Unknown History tablet (Januvia) Allergy/AdvReac Type Severity Reaction Status Date / Time No Known Allergies Allergy Verified 02/06/21 18:33 Social History Smoking Status: Never smoker Review of Systems (Anesthesia) ROS Narrative System reviewed and no additional complaints, except as documented.
--- NOTE | 2024-04-16 10:48 | PCM.PROGNOTE ---
Subjective Subjective Patient seen and examined. She was lying calmly in bed. She indicated that she felt well with a thumbs up sign when asked how she felt. She is having his PEG tube exchanged today by gastroenterology. She is on 2 L of oxygen is a bit tachypneic today with respiratory to of 24. Objective Data Objective Data Vital Signs: Vital Signs Temp Pulse Resp BP Pulse Ox O2 Del Method O2 Flow Rate 97.8 F 72 24 H 147/69 H 97 Nasal Cannula 2 04/16/24 10:32 04/16/24 10:32 04/16/24 10:39 04/16/24 10:32 04/16/24 10:39 04/16/24 10:39 04/16/24 10:39 FiO2 40 04/16/24 10:32 Oxygen Flow Rate (L/min) 2 Oxygen Delivery Method Nasal Cannula Weight: 130 lb 1.164 oz Body Mass Index (BMI) 20.4 Intake & Output: Intake and Output for Last 24 Hours 04/14/24 04/15/24 04/16/24 23:59 23:59 23:59 Intake Total 570 / 570 1350 / 1350 880 / 880 Output Total 1800 / 1800 Balance -1230 / -1230 1350 / 1350 880 / 880 Lab / Micro Data 04/14/24 07:58 04/15/24 08:35 Micro: Microbiology 04/12/24 13:50 Mucosa - Nose SARS-CoV-2, Influenza & RSV (PCR) - Final Influenzae A Rhythm Strip Rhythm Strip: Sinus Rhythm Rate: 75 Ectopy: None Physical Exam Const alert and oriented x3 Constitutional Narrative: chronic expressive aphasia due to severe Parkinson's disease General Appearance: cooperative and comfortable HEENT normocephalic, head/scalp atraumatic, hearing grossly normal bilaterally, nasal mucous membranes and turbinates normal, moist oral mucous membranes and oropharynx normal Eyes PERRL, EOMs intact bilaterally and conjunctivae normal Neck full ROM, no lymphadenopathy and supple Lymph Lymphatic: no lymphadenopathy noted and no lymphedema noted Chest inspection of chest normal Resp Resp Narrative: mildly diminished breath sounds bibasally, no crackles. On 2L of oxygen by nasal canula Cardio regular rate, regular rhythm, S1 normal heart sound, S2 normal heart sound, no murmurs and peripheral pulses 2+ throughout GI normal to inspection, nondistended, normoactive bowel sounds, soft to palpation, non-tender and non-distended GI Narrative: PEG tube in place. Back/Spine normal ROM Extremity normal to inspection, full ROM, normal capillary refill, no clubbing, cyanosis or edema, no calf tenderness and no pedal edema Skin no rashes or lesions noted General Skin Exam: no breakdown Neuro CN's II-XII intact bilaterally and no sensory deficits noted Neuro Narrative: Rigidity noted with movement. Stable. Has chronic expressive aphasia Coordination / Balance: [id number] test normal Motor Exam: general weakness Psych mental status grossly normal, thought process normal and cooperative Psych Narrative: Flat affect. Appearance: appropriate Assessment & Plan Assessment/Plan (1) Acute hypoxic respiratory failure: (2) Generalized weakness: (3) Influenza A: PLAN: Plan #Acute hypoxic respiratory failure due to influenza A infection and probable heart failure with preserved ejection fraction. Currently on 2 L of oxygen. Chest x-ray on admission showed left lower lobe pneumonia. Tested positive for influenza also. On Tamiflu, to complete a 5-day course. Also being diuresed with Lasix. 2D echo showed EF of 65% with stage I diastolic dysfunction and mild concentric left ventricular hypertrophy with RVSP of 55 mmHg. Currently on p.o. Lasix. Titrate oxygen to maintain saturation above 90%. on IV zosyn. To complete 5 day course of antibiotics tomorrow. #Pulmonary hypertension As per 2D echo as above which showed RVSP of 55 mmHg. On Lasix. Will benefit from follow-up with cardiology on outpatient basis. #Advanced Parkinson's disease Has expressive aphasia and is not able to communicate verbally. On entacapone as well as levodopa/carbidopa Has PEG tube in place. PEG tube to be examined by GI today. #Hypothyroidism: On Synthroid #Hypertension: Is on losartan but this was held on admission. Type 2 diabetes mellitus: On metformin and sitagliptin DVT prophylaxis: Lovenox Disposition: For likely DC to SNF tomorrow if she remains medically stable. # Charges/Coding Visit Charges Inpatient E&M: 32644 Subs Hosp L2
--- NOTE | 2024-04-16 12:27 | PN_ITS ---
Progress Note Patient is NPO for egd today. Physical Exam Const alert and oriented x3 Constitutional Narrative: chronic expressive aphasia due to severe Parkinson's disease General Appearance: cooperative and comfortable HEENT normocephalic, head/scalp atraumatic, hearing grossly normal bilaterally, nasal mucous membranes and turbinates normal, moist oral mucous membranes and oropharynx normal Eyes PERRL, EOMs intact bilaterally and conjunctivae normal Neck full ROM, no lymphadenopathy and supple Lymph Lymphatic: no lymphadenopathy noted and no lymphedema noted Chest inspection of chest normal Resp Resp Narrative: mildly diminished breath sounds bibasally, no crackles. On 2L of oxygen by nasal canula Cardio regular rate, regular rhythm, S1 normal heart sound, S2 normal heart sound, no murmurs and peripheral pulses 2+ throughout GI normal to inspection, nondistended, normoactive bowel sounds, soft to palpation, non-tender and non-distended GI Narrative: PEG tube in place. Back/Spine normal ROM Extremity normal to inspection, full ROM, normal capillary refill, no clubbing, cyanosis or edema, no calf tenderness and no pedal edema Skin no rashes or lesions noted General Skin Exam: no breakdown Neuro CN's II-XII intact bilaterally and no sensory deficits noted Neuro Narrative: Rigidity noted with movement. Stable. Has chronic expressive aphasia Coordination / Balance: [id number]-it-xofo test normal Motor Exam: general weakness Psych mental status grossly normal, thought process normal and cooperative Psych Narrative: Flat affect. Appearance: appropriate Assessment & Plan Assessment/Plan (1) Acute hypoxic respiratory failure: (2) Influenza A: (3) Generalized weakness: (4) PEG tube malfunction: PLAN: Plan 78-year-old with Parkinson disease and acute hypoxic respiratory failure secondary to acute influenza A. * admitted to the ICU initially due to patient requiring BIPAP. * Chest x-ray showed left lower lobe pneumonia and mild cardiomegaly and BNP was also elevated. * Also tested positive for influenza. Now off BiPAP and on 2 L of oxygen. Pulmonary artery hypertension: * As per 2D echo which showed RVSP of 55 mmHg. * Likely due to underlying stage I diastolic dysfunction. * On Lasix. Will monitor. * Advanced Parkinson's disease * Stable. Does have some expressive aphasia on account of the Parkinson's disease. On entacapone Malfunctioning PEG tube she will undergo : An EGD with PEG exchange today. Please stop her PEG feedings at midnight. Visit Charges Inpatient E&M: 97068 Subs Hosp L2
[2024-04-16] MEDS: Silver Nitrate (BKC) 1 EACH (13:19)
--- NOTE | 2024-04-16 13:34 | OP.EGD_ITS ---
Patient Name: Thelma Newman Procedure Date: 04/16/2024 12:25 PM Date of : 1945 Age: 78 Procedure: Upper GI endoscopy Indications: Place PEG because patient is unable to eat Providers: Brad Barcenas DO Medicines: Monitored Anesthesia Care Patient Profile: This is a 78 year old female. Refer to note in patient chart for documentation of history and physical. Patient has symptoms of dysphagia with both liquids and solids. Complications: No immediate complications. Procedure: Pre-Anesthesia Assessment: - Prior to the procedure, a History and Physical was performed, and patient medications and allergies were reviewed. The patient is competent. The risks and benefits of the procedure and the sedation options and risks were discussed with the patient. All questions were answered and informed consent was obtained. Patient identification and proposed procedure were verified by the physician in the pre-procedure area. Mental Status Examination: alert and oriented. Airway Examination: normal oropharyngeal airway and neck mobility. Respiratory Examination: clear to auscultation. CV Examination: normal. Prophylactic Antibiotics: The patient does not require prophylactic antibiotics. Prior Anticoagulants: The patient has taken no anticoagulant or antiplatelet agents. ASA Grade Assessment: II - A patient with mild systemic disease. After reviewing the risks and benefits, the patient was deemed in satisfactory condition to undergo the procedure. The anesthesia plan was to use monitored anesthesia care (MAC). Immediately prior to administration of medications, the patient was re-assessed for adequacy to receive sedatives. The heart rate, respiratory rate, oxygen saturations, blood pressure, adequacy of pulmonary ventilation, and response to care were monitored throughout the procedure. The physical status of the patient was re-assessed after the procedure. After obtaining informed consent, the endoscope was passed under direct vision. Throughout the procedure, the patient's blood pressure, pulse, and oxygen saturations were monitored continuously. The Endoscope was introduced through the mouth, and advanced to the second part of duodenum. The upper GI endoscopy was accomplished without difficulty. The patient tolerated the procedure well. Scope In: 12:59:32 PM Scope Out: 1:26:17 PM Total Procedure Duration Time 0 hours 26 minutes 45 seconds Findings: The examined esophagus was normal. There was evidence of an eroding gastrostomy tube present in the gastric body. This was characterized by a hemorrhagic appearance. The PEG required removal because it developed complications. The PEG was cut externally, grasped, and removed with the scope. Removal was easily accomplished. The patient was placed in the supine position for PEG placement. The stomach was insufflated to appose gastric and abdominal buckley. A site was located in the body of the stomach with excellent transillumination for placement. The abdominal wall was marked and prepped in a sterile manner. The area was anesthetized with 1 mL of 0.5% lidocaine. The trocar needle was introduced through the abdominal wall and into the stomach under direct endoscopic view. A snare was introduced through the endoscope and opened in the gastric lumen. The guide wire was passed through the trocar and into the open snare. The snare was closed around the guide wire. The endoscope and snare were removed, pulling the wire out through the mouth. A skin incision was made at the site of needle insertion. The externally removable 20 Fr EndoVive Safety gastrostomy tube was lubricated. The G-tube was tied to the guide wire and pulled through the mouth and into the stomach. The trocar needle was removed, and the gastrostomy tube was pulled out from the stomach through the skin. The external bumper was attached to the gastrostomy tube, and the tube was cut to remove the guide wire. The final position of the gastrostomy tube was confirmed by relook endoscopy, and skin marking noted to be 4 cm at the external bumper. The final tension and compression of the abdominal wall by the PEG tube and external bumper were checked and revealed that the bumper was loose and lightly touching the skin. The feeding tube was capped, and the tube site cleaned and dressed. No gross lesions were noted in the first portion of the duodenum. Impression: - Normal esophagus. - Eroding gastrostomy tube present characterized by a hemorrhagic appearance. - No gross lesions in the first portion of the duodenum. - The PEG was cut externally, grasped, and removed with the scope because it developed complications. - An externally removable PEG placement was successfully completed. - No specimens collected. Recommendation: - Please follow the post-PEG recommendations including: advance food and medications per primary care provider. - Continue present medications. Procedure Code(s): --- Professional --- 01275, Esophagogastroduodenoscopy, flexible, transoral; with directed placement of percutaneous gastrostomy tube 50382, 59,51, Esophagogastroduodenoscopy, flexible, transoral; with removal of foreign body(s) CPT copyright 2021 [employer]. All rights reserved. The codes documented in this report are preliminary and upon business data analyst review may be revised to meet current compliance requirements. Brad Barcenas DO 04/16/2024 1:34:14 PM This report has been signed electronically. Number of Addenda: 0 Note Initiated On: 04/16/2024 12:25 PM
--- NOTE | 2024-04-16 13:35 | OP.CCLET_ITS ---
04/16/2024 Bruce Vidal Re : Upper GI endoscopy procedure for Thelma eNwman Judyr Marcy This procedure was performed on Tuesday, April 16, 2024. My impressions and recommendations are as follows: Impressions : - Normal esophagus. - Eroding gastrostomy tube present characterized by a hemorrhagic appearance. - No gross lesions in the first portion of the duodenum. - The PEG was cut externally, grasped, and removed with the scope because it developed complications. - An externally removable PEG placement was successfully completed. - No specimens collected. Recommendations : - Please follow the post-PEG recommendations including: advance food and medications per primary care provider. - Continue present medications. My findings are described in the full procedure note, which is enclosed. If I can be of further assistance, please feel free to contact me at . Sincerely, Brad Barcenas, 04/16/2024 1:34:14 PM This report has been signed electronically.
--- NOTE | 2024-04-16 13:38 | PCM.POST.ANE ---
Anesthesia: Postop Eval I Current Vital Signs Temperature: 97.5 F Pulse Rate: 69 Blood Pressure: 89/56 Respiratory Rate: 18 Pulse Ox: 100 Oxygen Delivery Method: Nasal Cannula Oxygen Flow Rate (L/min): 2 Assessment Airway patent: Yes Spontaneous unlabored respirations: Yes Mental status: Asleep nausea: No Vomiting: No Anesthesia Complication: No Fluid Hydration Crystalloid volume administer (ml): 60 Total IV fluid infused: 60 Progress Note Anesthesia document: Postop Eval 1 completed: Yes
--- NOTE | 2024-04-16 14:00 | PCM.POSTANE2 ---
Anesthesia Postop Eval I Sum Postop Eval Completion status Anesthesia document: Postop Eval 1 completed: Yes Anesthesia Postop Eval I Summary Anesthesia Postop Eval I Summary: Anesthesia Postop Eval I: Assessment Summary Airway patent Yes 04/16/24 13:39 [email or web address] Spontaneous unlabored Yes 04/16/24 13:39 [email or web address] respirations Mental status Asleep 04/16/24 13:39 [email or web address] nausea No 04/16/24 13:39 [email or web address] Vomiting No 04/16/24 13:39 [email or web address] Anesthesia Postop Eval I: Fluid Summary Crystalloid volume administer 60 04/16/24 13:39 [email or web address] (ml) Colloids volume administered ( ml) Blood Product volume administered (ml) Total IV fluid infused 60 04/16/24 13:39 [email or web address] Anesthesia Postop Eval I: Summary Notes Anesthesia Complication No 04/16/24 13:39 [email or web address] Anesthesia Complication Comment: Post-operative progress note Anesthesia: Postop Eval II Evaluation Mental status: Awake Pain Level: 0 nausea: No Vomiting: No
[2024-04-16] MEDS: Furosemide 40 MG Tablet PO (14:35)
[2024-04-16] MEDS: Enoxaparin 40 MG/0.4 ML Syringe SC (14:36)
[2024-04-16] MEDS: Cholecalciferol (VIT D3) 25 MCG TABLET (1,000 UNITS) GT (14:36)
[2024-04-16] MEDS: Oseltamivir Phosphate 75 MG Capsule GT ×2 (14:36→21:52)
[2024-04-16] MEDS: Jevity 1.5. 1,000 ML Bottle 240 ML GT ×3 (14:38→22:04)
[2024-04-16] MEDS: MELATONIN 10 MG TABLET 5 MG GT (21:52)
[2024-04-16] MEDS: Mirtazapine 30 MG Tablet GT (21:52)
[2024-04-16] MEDS: Pramipexole Di-HCl 0.5 MG Tablet 1.5 MG PO (21:52)
[2024-04-17 03:11] VITALS: BP 178/68; PULSE 62; RESP 18; TEMP 36.6; O2SAT 98
[2024-04-17 03:14] VITALS: BP 160/71
[2024-04-17] MEDS: Piperacil/Tazobactam 3.375 GM in 0.9% Normal Saline (50mL MB+) 50 ML IV ×2 (06:02→13:56)
[2024-04-17] MEDS: Carbidopa/Levodopa 25/100 Tablet GT ×4 (06:02→16:31)
[2024-04-17] MEDS: Levothyroxine 112 MCG Tablet GT (06:02)
[2024-04-17] MEDS: Jevity 1.5. 1,000 ML Bottle 240 ML GT ×3 (06:08→14:05)
[2024-04-17 07:05] VITALS: O2SAT 94
--- NOTE | 2024-04-17 07:57 | EX.PCM.CON.S ---
Assessment & Plan Assessment/Plan (1) PEG tube malfunction: PLAN: Patient is a 78-year-old female with history of Parkinson's and is dependent on PEG tube for enteral feeding. This tube was recently replaced by gastroenterology who observed that patient had evidence of some erosion versus prolapsed gastric mucosa. On exam I find the latter. This could be related to the bulk of patient's dressing underneath the flange. Ongoing, I do not believe this will require reciting of the PEG tube but may require an operative trip for excision with electrocautery. For the interim would like to trial more conservative measures with application of topical silver nitrate. Patient does not appear to be in a position to consent for herself so I will look to reach out to family. For now PEG tube may be used without restriction. Do recommend limiting the bolster dressing underneath the flange to avoid undue tension on the underlying bumper and risk for exacerbating the present situation. Carlos Edwards MD General Surgery Endocrine Surgery Pager: [facility] [address] [place] [address], [facility], [address] [place] [address] Office: [phone] HPI Consult Data Date of Consult: 04/17/24 HPI Narrative Reason for Consultation: PEG tube concern HPI Narrative: MARYELLEN MCMILLAN, is a 78 F who is admitted to [facility] with shortness of breath and diagnosed with influenza A. Gastroenterology was consulted initially for PEG tube exchange due to PEG tube dysfunction. Patient is reportedly slowly receiving her nutrition via this route. I was asked to evaluate patient after gastroenterology took patient for EGD with PEG tube exchange and found evidence of prolapsing gastric mucosa. I did instruct gastroenterology to simply replace the PEG tube and place me on consult rather than consider reciting the PEG tube. The meantime nursing reports they have used the new PEG tube without difficulty. [facility] Medical History Parkinson's disease with use of electrical brain stimulation Hypothyroid DM hyperosmolarity type II Parkinson disease Home Medications ?Medication ?Instructions ?Recorded ?Last Taken ?Type carbidopa 25 mg-levodopa 100 mg 2 tab PO .COMPLEX 10/02/19 Unknown History tablet cholecalciferol (vitamin D3) 25 1,000 unit PO DAILY 10/02/19 Unknown History mcg (1,000 unit) tablet ergocalciferol (vitamin D2) 1,250 1,250 mcg PO 10/02/19 Unknown History mcg (50,000 unit) capsule furosemide 40 mg tablet 40 mg PO DAILY PRN Swelling 10/02/19 Unknown History levothyroxine 112 mcg tablet 112 mcg PO DAILY 10/02/19 Unknown History losartan 50 mg tablet 50 mg PO DAILY 10/02/19 Unknown History melatonin 5 mg tablet 5 mg PO QHS 10/02/19 Unknown History metoprolol tartrate 50 mg tablet 50 mg PO BID 10/02/19 Unknown History mirtazapine 30 mg disintegrating 30 mg PO QHS 10/02/19 Unknown History tablet potassium chloride 10 mEq 10 meq PO DAILY 10/02/19 Unknown History capsule,extended release potassium chloride 10 mEq 10 meq PO DAILY PRN Swelling 10/02/19 Unknown History tablet,extended release sitagliptin phos 100 mg-metformin 1 ea PO DAILY 10/02/19 Unknown History ER 1,000 mg tablet,extend rel 24h mp entacapone 200 mg tablet 200 mg PO 4XD 04/12/24 Unknown History ropinirole 2 mg tablet 4 mg PO DAILY 04/12/24 Unknown History sitagliptin phosphate 100 mg 100 mg PO DAILY 04/12/24 Unknown History tablet (Januvia) Allergy/AdvReac Type Severity Reaction Status Date / Time No Known Allergies Allergy Verified 02/06/21 18:33 Social History Smoking Status: Never smoker Physical Exam Const alert and oriented x3 Resp normal respiratory effort GI GI Narrative: Nondistended, PEG tube flange is not immediately visible beneath dressing but PEG tube tubing is emanating from left upper quadrant. PEG tube dressing is taken down there is evidence of a prolapsed gastric mucosa has a mildly galdamez/silver discoloration. There is also evidence of mild bloody discharge. Patient's abdomen is otherwise soft and apparently nontender to palpation. Lab / Micro Data 04/14/24 07:58 04/15/24 08:35 Rhythm Strip Rhythm Strip: Sinus Rhythm Rate: 75 Ectopy: None Charges/Coding Visit Charges Inpatient E&M: 03612 Init Hosp L2
[2024-04-17 09:10] VITALS: BP 134/45; PULSE 72; RESP 18; TEMP 36.5; O2SAT 97
[2024-04-17] MEDS: Enoxaparin 40 MG/0.4 ML Syringe SC (09:32)
[2024-04-17] MEDS: Oseltamivir Phosphate 75 MG Capsule GT (09:32)
[2024-04-17] MEDS: Cholecalciferol (VIT D3) 25 MCG TABLET (1,000 UNITS) GT (09:33)
[2024-04-17] MEDS: Furosemide 40 MG Tablet PO (09:33)
[2024-04-17 12:50] VITALS: BP 134/45; PULSE 72; RESP 18; TEMP 36.5; O2SAT 97
--- NOTE | 2024-04-17 13:39 | PN_ITS ---
Subjective Subjective Patient seen and examined. She had no complaints. Review of systems otherwise negative. She has a PEG tube exchange yesterday. Review of systems otherwise negative. Objective Data Objective Data Vital Signs: Vital Signs Temp Pulse Resp BP Pulse Ox O2 Del Method O2 Flow Rate 97.7 F L 72 18 134/45 H 97 Room Air 2 04/17/24 12:50 04/17/24 12:50 04/17/24 12:50 04/17/24 12:50 04/17/24 12:50 04/17/24 12:50 04/17/24 03:11 FiO2 40 04/16/24 10:32 Oxygen Flow Rate (L/min) 2 Oxygen Delivery Method Room Air Weight: 130 lb 1.164 oz Body Mass Index (BMI) 20.4 Intake & Output: Intake and Output for Last 24 Hours 04/15/24 04/16/24 04/17/24 23:59 23:59 23:59 Intake Total 1350 / 1350 1350 / 1350 670 / 670 Output Total 300 / 300 300 / 300 Balance 1350 / 1350 1050 / 1050 370 / 370 Lab / Micro Data 04/14/24 07:58 04/15/24 08:35 Micro: Microbiology 04/12/24 13:50 Mucosa - Nose SARS-CoV-2, Influenza & RSV (PCR) - Final Influenzae A Rhythm Strip Rhythm Strip: Sinus Rhythm Rate: 75 Ectopy: None Physical Exam Const alert, no apparent distress and average body habitus Constitutional Narrative: chronic expressive aphasia due to severe Parkinson's disease General Appearance: cooperative and comfortable HEENT normocephalic, head/scalp atraumatic, hearing grossly normal bilaterally, nasal mucous membranes and turbinates normal, moist oral mucous membranes and oropharynx normal Eyes PERRL, EOMs intact bilaterally and conjunctivae normal Neck full ROM, no lymphadenopathy and supple Lymph Lymphatic: no lymphadenopathy noted and no lymphedema noted Chest inspection of chest normal Resp normal respiratory effort and normal air movement Resp Narrative: mildly diminished breath sounds bibasally, no crackles. On room air. Cardio regular rate, regular rhythm, S1 normal heart sound, S2 normal heart sound, no murmurs and peripheral pulses 2+ throughout GI normal to inspection, nondistended, normoactive bowel sounds, soft to palpation, non-tender and non-distended GI Narrative: PEG tube in place. Back/Spine normal ROM Extremity normal to inspection, full ROM, normal capillary refill, no clubbing, cyanosis or edema, no calf tenderness and no pedal edema General Extremity: no tenderness to palpation of joints or extremities Skin no rashes or lesions noted General Skin Exam: no breakdown Neuro CN's II-XII intact bilaterally and no sensory deficits noted Neuro Narrative: Rigidity noted with movement. Stable. Has chronic expressive aphasia Coordination / Balance: [id number] test normal Motor Exam: general weakness Psych mental status grossly normal, thought process normal and cooperative Psych Narrative: Flat affect. Appearance: appropriate Assessment & Plan Assessment/Plan (1) Acute hypoxic respiratory failure: (2) Generalized weakness: (3) Influenza A: PLAN: Plan #Acute hypoxic respiratory failure due to influenza A infection and probable heart failure with preserved ejection fraction. * Now on room air. Chest x-ray on admission showed left lower lobe pneumonia. Tested positive for influenza also. On Tamiflu, to complete a 5-day course. Also being diuresed with Lasix. 2D echo showed EF of 65% with stage I diastolic dysfunction and mild concentric left ventricular hypertrophy with RVSP of 55 mmHg. * Currently on p.o. Lasix. Titrate oxygen to maintain saturation above 90%. * completed a course of IV zosyn * now on room air. * #Pulmonary hypertension * As per 2D echo as above which showed RVSP of 55 mmHg. * On Lasix. Will benefit from follow-up with cardiology on outpatient basis. * #Advanced Parkinson's disease * Has expressive aphasia and is not able to communicate verbally. On entacapone as well as levodopa/carbidopa #Dysphagia * had PEG tube exchanged by GI yesterday. Per op notes, esophagus was normal and there was eroding gastrostomy tube characterized by hemorrhagic appearance with no gross lesions in the first portion of the duodenum. PEG tube was cut externally, grasped and removed with the scope and an externally removable PEG placement was successfully completed. * General surgery consulted due to concerns of erosion versus prolapsed gastric mucosa. Per GI patient likely has prolapsed gastric mucosa and this may require an operative trip for excision with electrocautery. In the interim to trial conservative measures with application of topical silver nitrate. * General surgery they will reach out to family to get consent for the procedure. * #Hypothyroidism: On Synthroid #Hypertension: Is on losartan but this was held on admission. Type 2 diabetes mellitus: On metformin and sitagliptin DVT prophylaxis: Lovenox Disposition: For DC to SNF once medically stable. # Charges/Coding Visit Charges Inpatient E&M: 94327 Subs Hosp L2
[2024-04-17 15:42] VITALS: O2SAT 96
--- NOTE | 2024-04-17 15:59 | TREXTCAR_ITS ---
Diet Diet Order/Speech Therapy: 04/16/24 00:01 Diet: Nothing Per Oral Diet Comments: PEG bolus TF Routine Orders/Code Status Enema Type: Fleetz Enema Frequency: Daily PRN Suppository Type: Dulcolax 10mg Suppository Frequency: Daily PRN DC O2, CPAP, BIPAP needs Home O2 Discharge instructions: No Wound(s) Right dos santos: Wound Type: Abrasion Therapies Weight Bearing: Weight bearing as tolerated Extremity Affected:: Bilateral Lower Physical Therapy: Eval and Treat Occupational Therapy: Eval and Treat Problem/Diagnosis (1) Acute hypoxic respiratory failure: Status: Acute Code(s): J96.01 - Acute respiratory failure with hypoxia (2) Generalized weakness: Status: Acute Code(s): R53.1 - Weakness (3) Influenza A: Status: Acute Code(s): J10.1 - Influenza due to other identified influenza virus with other respiratory manifestations Plan #Acute hypoxic respiratory failure due to influenza A infection and probable heart failure with preserved ejection fraction. * Now on room air. Chest x-ray on admission showed left lower lobe pneumonia. Tested positive for influenza also. On Tamiflu, to complete a 5-day course. Also being diuresed with Lasix. 2D echo showed EF of 65% with stage I diastolic dysfunction and mild concentric left ventricular hypertrophy with RVSP of 55 mmHg. * Currently on p.o. Lasix. Titrate oxygen to maintain saturation above 90%. * completed a course of IV zosyn * now on room air. * #Pulmonary hypertension * As per 2D echo as above which showed RVSP of 55 mmHg. * On Lasix. Will benefit from follow-up with cardiology on outpatient basis. * #Advanced Parkinson's disease * Has expressive aphasia and is not able to communicate verbally. On entacapone as well as levodopa/carbidopa #Dysphagia * had PEG tube exchanged by GI yesterday. Per op notes, esophagus was normal and there was eroding gastrostomy tube characterized by hemorrhagic appearance with no gross lesions in the first portion of the duodenum. PEG tube was cut externally, grasped and removed with the scope and an externally removable PEG placement was successfully completed. * General surgery consulted due to concerns of erosion versus prolapsed gastric mucosa. Per GI patient likely has prolapsed gastric mucosa and this may requ cedric an operative trip for excision with electrocautery. In the interim to trial conservative measures with application of topical silver nitrate. * General surgery they will reach out to family to get consent for the procedure. * #Hypothyroidism: On Synthroid #Hypertension: Is on losartan but this was held on admission. Type 2 diabetes mellitus: On metformin and sitagliptin DVT prophylaxis: Lovenox Disposition: For DC to SNF once medically stable. # Allergies/Procedures Done in Hospital Allergies No Known Allergies Allergy (Verified 02/06/21 18:33) Procedures: None Type of Care/Length of Stay Estimated LOS: Convalescent Care Less Than 30 days Type of Care Needed: Skilled Rehab Potential: Fair Prognosis: Fair Additional Orders/Day of Discharge Day of Discharge: 04/17/24 Dietary and Speech Recommendations Dietitian Recommendations/Changes: Continue NPO; Via PEG, continue 240ml bolus feedings of Jevity 1.5Cal 5 times per day with 90ml water flushes before and after feedings at 07:00, 10:30, 14:00, 17:30, 21:30 to provide 1800 calories, 76g protein, and 1812ml total water per day. Will monitor and adjust TF as needed. Discharge Plan Admission Admit Date/Time: 04/12/24 15:41 Primary Reason for Your Visit: acute influenza infection Attending Provider: Eufemia Vaughn Primary Care Provider: Bruce Vidal Consulting Providers: Juno Benitez; David Madrid; Eufemia Vaughn; Carlos Edwards Instructions Patient Instructions: ED Influenza (Adult) Discharge Orders/Prescriptions Prescriptions: Continued losartan 50 MG tablet 50 mg PO DAILY furosemide 40 MG tablet 40 mg PO DAILY PRN (Reason: Swelling) potassium chloride 10 MEQ capsule, extended release 10 meq PO DAILY mirtazapine 30 MG tablet,disintegrating 30 mg PO QHS potassium chloride 10 MEQ tablet extended release 10 meq PO DAILY PRN (Reason: Swelling) Rx Instructions: take with lasix metoprolol tartrate 50 MG tablet 50 mg PO BID Rx Instructions: 100mg am and 50mg afternoon ergocalciferol (vitamin D2) 1,250 MCG capsule 1,250 mcg PO carbidopa-levodopa 1 TABLET tablet 2 tab PO .COMPLEX Patient Comments: 1 TAB orally 2 tabs at 0700, 1030, 1400, and 1 tablet at 1730 and 2100; administer 30-60 minutes before bedtime Rx Instructions: 2 tabs orally 1 TAB orally 2 tabs at 0700, 1030, 1400, and 1 tablet at 1730 and 2100; administer 30-60 minutes before bedtime; levothyroxine 112 MCG tablet 112 mcg PO DAILY cholecalciferol (vitamin D3) 1,000 UNIT tablet 1,000 unit PO DAILY melatonin 5 MG tablet 5 mg PO QHS sitagliptin phos-metformin 1 EACH tablet, ER multiphase 24 hr 1 ea PO DAILY entacapone 200 mg tablet 200 mg PO 4XD Rx Instructions: with first four doses of sinemet ropinirole 2 mg tablet 4 mg PO DAILY Patient Comments: [NO ORIGINAL SIG] Januvia 100 mg tablet 100 mg PO DAILY Referrals / Follow Up: Bruce Vidal DO [Primary Care Provider] - Within 1 Week Disposition Disposition (needs filled in before D/C Order can be placed): Long-Term Facility
--- NOTE | 2024-04-17 16:00 | DS.PCM_ITS ---
Providers Date of Admission: 04/12/24 Date of Discharge: 04/17/24 Primary Care Physician: Dr. Bruce Vidal, Consultations 04/13/24 01:02 Consult: Engineering Faculty Member / Pulmonary Medicine Routine Consulting Provider: David Madrid Reason for Consult: acute respiratory failure w/ flu A EMERGENT Consult: No Notified: Yes Date Notified: 04/13/24 Time Notified: 06:09 Method of Notification: Text 04/14/24 17:20 Consult: Gastroenterology Routine Consulting Provider: [facility] Reason for Consult: PEG tube exchange EMERGENT Consult: No Notified: Yes Date Notified: 04/14/24 Time Notified: 17:20 Method of Notification: Text 04/16/24 18:53 Consult: General Surgery Routine Consulting Provider: Carlos Edwards Reason for Consult: peg site abnormalities EMERGENT Consult: No Notified: Yes Date Notified: 04/16/24 Time Notified: 18:54 Method of Notification: Verbal Reason For Visit: FLU A INFECTION W/ HYPOXIA AND CONCERN FOR CHF Diagnosis Discharge Diagnosis (1) Acute hypoxic respiratory failure: Status: Acute Code(s): J96.01 - Acute respiratory failure with hypoxia (2) Generalized weakness: Status: Acute Code(s): R53.1 - Weakness (3) Influenza A: Status: Acute Code(s): J10.1 - Influenza due to other identified influenza virus with other respiratory manifestations Plan #Acute hypoxic respiratory failure due to influenza A infection and probable heart failure with preserved ejection fraction. * Now on room air. Chest x-ray on admission showed left lower lobe pneumonia. Tested positive for influenza also. On Tamiflu, to complete a 5-day course. Also being diuresed with Lasix. 2D echo showed EF of 65% with stage I diastolic dysfunction and mild concentric left ventricular hypertrophy with RVSP of 55 mmHg. * Currently on p.o. Lasix. Titrate oxygen to maintain saturation above 90%. * completed a course of IV zosyn * now on room air. * #Pulmonary hypertension * As per 2D echo as above which showed RVSP of 55 mmHg. * On Lasix. Will benefit from follow-up with cardiology on outpatient basis. * #Advanced Parkinson's disease * Has expressive aphasia and is not able to communicate verbally. On entacapone as well as levodopa/carbidopa #Dysphagia * had PEG tube exchanged by GI yesterday. Per op notes, esophagus was normal and there was eroding gastrostomy tube characterized by hemorrhagic appearance with no gross lesions in the first portion of the duodenum. PEG tube was cut externally, grasped and removed with the scope and an externally removable PEG placement was successfully completed. * General surgery consulted due to concerns of erosion versus prolapsed gastric mucosa. Per GI patient likely has prolapsed gastric mucosa and this may require an operative trip for excision with electrocautery. In the interim to trial conservative measures with application of topical silver nitrate. * General surgery they will reach out to family to get consent for the procedure. * #Hypothyroidism: On Synthroid #Hypertension: Is on losartan but this was held on admission. Type 2 diabetes mellitus: On metformin and sitagliptin DVT prophylaxis: Lovenox Disposition: For DC to SNF once medically stable. # Medications at Discharge Home Medications carbidopa 25 mg-levodopa 100 mg tablet 2 tab PO .COMPLEX 10/02/19 cholecalciferol (vitamin D3) 25 mcg (1,000 unit) tablet 1,000 unit PO DAILY 10/02/19 ergocalciferol (vitamin D2) 1,250 mcg (50,000 unit) capsule 1,250 mcg PO 10/02/19 furosemide 40 mg tablet 40 mg PO DAILY PRN Swelling 10/02/19 levothyroxine 112 mcg tablet 112 mcg PO DAILY 10/02/19 losartan 50 mg tablet 50 mg PO DAILY 10/02/19 melatonin 5 mg tablet 5 mg PO QHS 10/02/19 metoprolol tartrate 50 mg tablet 50 mg PO BID 10/02/19 mirtazapine 30 mg disintegrating tablet 30 mg PO QHS 10/02/19 potassium chloride 10 mEq capsule,extended release 10 meq PO DAILY 10/02/19 potassium chloride 10 mEq tablet,extended release 10 meq PO DAILY PRN Swelling 10/02/19 sitagliptin phos 100 mg-metformin ER 1,000 mg tablet,extend rel 24h mp 1 ea PO DAILY 10/02/19 entacapone 200 mg tablet 200 mg PO 4XD 04/12/24 ropinirole 2 mg tablet 4 mg PO DAILY 04/12/24 sitagliptin phosphate 100 mg tablet (Januvia) 100 mg PO DAILY 04/12/24 Hospital Course Operations None Procedures EGD and Peg tube placement Summary of Care Provided Minutes Spent on Discharge: 47 Hospital Course: Patient is a 78-year-old female with past medical history as outlined was admitted from home with a complaint of worsening respiratory symptoms. She lived at home with her and had advanced Parkinson's disease with her being essentially nonverbal at baseline. She had had respiratory symptoms for about a week prior to admission with assisted worsening cough and difficulty breathing for about a day or so so she came into the ED where she tested positive for influenza. She was requiring 4 L of oxygen. Chest x-ray showed a left lower lobe infiltrate with small left pleural effusion and mild cardiomegaly. She was therefore admitted to be managed for hypoxia due to acute influenza infection and superimposed pneumonia. She was started on Tamiflu and placed on IV Lasix as well as IV antibiotics. Her respiratory status worsened so she was placed on BiPAP and admitted to the ICU. She had 2D echo which showed EF of 65% with stage I diastolic dysfunction and mild concentric left ventricular hypertrophy with RVSP of 55 mmHg. Patient was subsequently switched to p.o. Lasix. She completed a 5-day course of antibiotics and also a 5-day course of Tamiflu. Patient did have a PEG tube in situ but it seemed like it had not been changed since it was placed a couple of years ago. Gastroenterology was therefore consulted and she had the PEG tube exchange done on 04/16/2024 which showed an eroding gastrostomy tube characterized by hemorrhagic appearance and no gross lesions in the first portion of the duodenum and esophagus was also normal. The PEG tube was cut externally, grasped and removed in an externally removable PEG tube was inserted. General surgery was consulted due to concerns of erosion versus prolapsed gastric mucosa. General surgery reviewed patient and thought it was likely prolapsed gastric mucosa but recommended that the area be cauterized with silver nitrate and general surgery was okay with patient being discharged home. Patient was therefore discharged to intermediate facility on 04/17/2024. She is follow-up with her primary care doctor and to follow-up with gastroenterology within 1 to 2 weeks. Patient seen and examined prior to discharge. She was comfortable and on room air. Review of systems is otherwise negative. Physical Exam Const alert, no apparent distress and average body habitus Constitutional Narrative: chronic expressive aphasia due to severe Parkinson's disease General Appearance: cooperative and comfortable Exam Limitations: no limitations HEENT normocephalic, head/scalp atraumatic, hearing grossly normal bilaterally, nasal mucous membranes and turbinates normal, moist oral mucous membranes and oropharynx normal Eyes PERRL, EOMs intact bilaterally and conjunctivae normal Neck full ROM, no lymphadenopathy and supple Lymph Lymphatic: no lymphadenopathy noted and no lymphedema noted Chest inspection of chest normal Resp normal respiratory effort, normal air movement and no use of accessory muscles Resp Narrative: mildly diminished breath sounds bibasally, no crackles. On room air. Cardio regular rate, regular rhythm, S1 normal heart sound, S2 normal heart sound, no murmurs and peripheral pulses 2+ throughout GI normal to inspection, nondistended, normoactive bowel sounds, soft to palpation, non-tender and non-distended GI Narrative: PEG tube in place. Back/Spine normal ROM Extremity normal to inspection, full ROM, normal capillary refill, no clubbing, cyanosis or edema, no calf tenderness and no pedal edema General Extremity: no tenderness to palpation of joints or extremities Skin no rashes or lesions noted General Skin Exam: no breakdown Neuro CN's II-XII intact bilaterally and no sensory deficits noted Neuro Narrative: Stable. Has chronic expressive aphasia Coordination / Balance: [id number] test normal Motor Exam: general weakness Psych Psych Narrative: Flat affect. Appearance: appropriate Weight / BMI Weight Weight: 130 lb 1.164 oz Body Mass Index (BMI) 20.4 ABG / Lab / Microbiology Data 04/14/24 07:58 04/15/24 08:35 Microbiology: Microbiology 04/12/24 13:50 Mucosa - Nose SARS-CoV-2, Influenza & RSV (PCR) - Final Influenzae A D/C Instructions Discharge Diet: - (tube feed via PEG tube) Discharge Activity: Return to Normal Activity Weight Bearing Status: Weight bearing as tolerated Call your doctor if you observe: Fever of 101 or Higher, Shortness of breath, Dizziness, Swelling in the ankles and Chest pain DC O2, CPAP, BIPAP Needs PSN CPAP & BiPAP: BiPAP & CPAP Settings per PSN Mode BiPAP 04/13/24 07:07 Bipap Delivery Device Face Mask 04/13/24 07:07 BiPAP Inspiratory Pressure 14 04/13/24 07:07 BiPAP Expiratory Pressure 6 04/13/24 07:07 BiPAP Rate 12 04/13/24 07:07 Fraction of Inspired Oxygen ( 40 04/16/24 10:32 FIO2) Home O2 Discharge instructions: No Meaningful Use Info Meaningful Use Meaningful Use Diagnoses (Choose all that apply): None applicable Ischemic Stroke Statin Dosing Therapy Reference: STATIN DOSE THERAPY REFERENCE: * Patients > 75 years receive moderate or high dose statin therapy. * Patients 75 years or YOUNGER should receive HIGH intensity statin dose unless contraindicated. You will be required to document reason for non-treatment if statin daily dose does not meet guidelines. HIGH DOSE STATIN THERAPY DAILY Atorvastatin > than or = to 40 mg Rosuvastatin > than or = to 20 mg Amlodipine + Atorvastatin > than or = to 2.5/40 mg Ezetimibe + Simvastatin 10/80 mg Simvastatin 80mg Discharge Plan Admission Admit Date/Time: 04/12/24 15:41 Primary Reason for Your Visit: acute influenza infection Attending Provider: Eufemia Vaughn Primary Care Provider: Bruce Vidal Consulting Providers: Juno Benitez; David Madrid; Eufemia Vaughn; Carlos Edwards Instructions Patient Instructions: ED Influenza (Adult) Discharge Orders/Prescriptions Prescriptions: Continued losartan 50 MG tablet 50 mg PO DAILY furosemide 40 MG tablet 40 mg PO DAILY PRN (Reason: Swelling) potassium chloride 10 MEQ capsule, extended release 10 meq PO DAILY mirtazapine 30 MG tablet,disintegrating 30 mg PO QHS potassium chloride 10 MEQ tablet extended release 10 meq PO DAILY PRN (Reason: Swelling) Rx Instructions: take with lasix metoprolol tartrate 50 MG tablet 50 mg PO BID Rx Instructions: 100mg am and 50mg afternoon ergocalciferol (vitamin D2) 1,250 MCG capsule 1,250 mcg PO carbidopa-levodopa 1 TABLET tablet 2 tab PO .COMPLEX Patient Comments: 1 TAB orally 2 tabs at 0700, 1030, 1400, and 1 tablet at 1730 and 2100; administer 30-60 minutes before bedtime Rx Instructions: 2 tabs orally 1 TAB orally 2 tabs at 0700, 1030, 1400, and 1 tablet at 1730 and 2100; administer 30-60 minutes before bedtime; levothyroxine 112 MCG tablet 112 mcg PO DAILY cholecalciferol (vitamin D3) 1,000 UNIT tablet 1,000 unit PO DAILY melatonin 5 MG tablet 5 mg PO QHS sitagliptin phos-metformin 1 EACH tablet, ER multiphase 24 hr 1 ea PO DAILY entacapone 200 mg tablet 200 mg PO 4XD Rx Instructions: with first four doses of sinemet ropinirole 2 mg tablet 4 mg PO DAILY Patient Comments: [NO ORIGINAL SIG] Januvia 100 mg tablet 100 mg PO DAILY Referrals / Follow Up: Bruce Vidal DO [Primary Care Provider] - Within 1 Week Disposition Disposition (needs filled in before D/C Order can be placed): Care Home Facility Charges/Coding Visit Charges Inpatient E&M: 13001 Disch Hosp >30min
--- NOTE | 2024-04-17 16:24 | NURSING ---
Report called to nurse Hoang for pt to be d/c to [facility].
[2024-04-17] MEDS: Zinc Oxide 30gm Tube 1 APPLIC TOPICAL (16:30)
== END 2024-04-17 17:34 | disposition skilled nursing facility (03) | DRG 189 ==
LOC: ED 17:04 → ICU 17:55 → PCU 04-13 11:03
PROVIDERS: Internal Medicine Gastroenterology; Admitting Provider Hospitalist; Emergency Provider Emergency Medicine; PCP Family Medicine; Visit Provider Student in an Organized Health Care Education/Training Program
PROC: 0DJ08ZZ Inspection of Upper Intestinal Tract, Via Natural or Artificial Opening Endoscopic (ICD-10-PCS; CPT 43235; principal; 2024-04-16 11:25)
DX: J96.01 Acute respiratory failure with hypoxia (principal); I50.31 Acute diastolic (congestive) heart failure; J10.08 Influenza due to other identified influenza virus with other specified pneumonia; J15.9 Unspecified bacterial pneumonia; K94.23 Gastrostomy malfunction; I27.21 Secondary pulmonary arterial hypertension; R13.10 Dysphagia, unspecified; Z66 Do not resuscitate; E11.9 Type 2 diabetes mellitus without complications; G20.A1 Parkinson's disease without dyskinesia, without mention of fluctuations; I11.0 Hypertensive heart disease with heart failure; E03.9 Hypothyroidism, unspecified; I44.7 Left bundle-branch block, unspecified; S80.811A Abrasion, right lower leg, initial encounter; R53.81 Other malaise; Z79.890 Hormone replacement therapy; Z79.899 Other long term (current) drug therapy; Z79.84 Long term (current) use of oral hypoglycemic drugs; X58.XXXA Exposure to other specified factors, initial encounter
CPT/HCPCS: 36415; 71045; 80048; 83605; 83735; 83880; 84100; 84484; 85025; 85027; 87631; 93005; 93306; 94002; 94003; 94640; 94668; 97162; 97166; 97530; 97535; 97802; 97803; 99285; A4216; J1940; J2405